=== PATIENT | female | born 1940 | race Caucasian/White ===

== ENCOUNTER 2024-04-23 02:26 | Inpatient (IN) | payer MEDICARE, MEDICAID, SELFPAY ==
[2024-04-23] VITALS (34 sets, daily range): BP systolic 53–155; BP diastolic 38–107; PULSE 60–96; RESP 10–27; TEMP 35.7–36.8; O2SAT 93–100; BMI 29.2; BMI 29.4
--- NOTE | 2024-04-23 02:44 | CTR_ITS ---
PROCEDURE INFORMATION: Exam: CT Head Without Contrast Exam date and time: 04/23/2024 4:00 AM Age: 83 years old Clinical indication: Stroke-like symptoms; Altered mental status/memory loss and drowsines/somnolence and other: Seizure activity/garbled speech/lethargy; Additional info: AMS TECHNIQUE: Imaging protocol: Computed tomography of the head without contrast. Radiation optimization: All CT scans at this facility use at least one of these dose optimization techniques: automated exposure control; mA and/or kV adjustment per patient size (includes targeted exams where dose is matched to clinical indication); or iterative reconstruction. Other technique: STROKE PROTOCOL was implemented. COMPARISON: CT head wo con* [id number] 06/08/2017 2:44 PM RADIATION DOSE METRICS: Total DLP (mGy-cm): 1071.58 FINDINGS: Brain: Age appropriate atrophy and small vessel ischemic change. There is low attenuation throughout the right occipital lobe consistent with a probably subacute infarct. Mixed increased density may be hemorrhagic conversion versus contrast staining if the patient has had recent contrast-enhanced studies. There is effacement of sulci in this region. No other significant mass effect, midline shift or uncal herniation. Midline structures are normal. No extra-axial fluid collections. Cerebral ventricles: No ventriculomegaly. Paranasal sinuses: Visualized sinuses are unremarkable. No fluid levels. Mastoid air cells: Visualized mastoid air cells are well aerated. Orbital cavities: The patient has had bilateral lens replacement surgery. Bones: Unremarkable. No acute fracture. Soft tissues: Unremarkable. Vasculature: Carotid atherosclerotic calcification. CT/CT head wo con* [id number] IMPRESSION: Probable subacute to early chronic infarct throughout the right occipital lobe with increased density suggesting hemorrhagic transformation versus contrast staining if the patient has had a recent contrast-enhanced exam. ASSESSMENT: ASPECTS ([place] Stroke Program Early CT Score) is 10.
--- NOTE | 2024-04-23 02:44 | CTR_ITS ---
PROCEDURE INFORMATION: Exam: CT Abdomen And Pelvis Without Contrast Exam date and time: 04/23/2024 4:03 AM Age: 83 years old Clinical indication: Abdominal pain; Left lower quadrant (llq); Patient HX: Lower abd pain tenderness upon palpation. Bradycardic and hypotensive on monitor. Patient very lethargic. ; Additional info: Abd pain, AMS TECHNIQUE: Imaging protocol: Computed tomography of the abdomen and pelvis without contrast. Radiation optimization: All CT scans at this facility use at least one of these dose optimization techniques: automated exposure control; mA and/or kV adjustment per patient size (includes targeted exams where dose is matched to clinical indication); or iterative reconstruction. COMPARISON: CR (CHEST, ) 04/23/2024 2:46 AM RADIATION DOSE METRICS: Total DLP (mGy-cm): 2863.78 FINDINGS: Heart: The heart is at the upper limit normal with coronary artery and valvular calcifications. Diaphragm: There is a small hiatal hernia. Liver: Normal. No mass. Gallbladder and biliary ducts: The patient has had a cholecystectomy. Pancreas: Normal. No ductal dilation. Spleen: There are scattered granulomas throughout the spleen. Adrenal glands: Normal. No mass. Kidneys and ureters: There is a 2.8 cm cyst in the left kidney. The right kidney is normal. No stones or obstructive uropathy. Stomach and bowel: Unremarkable. No obstruction. No mucosal thickening. Appendix: No evidence of appendicitis. Intraperitoneal space: Unremarkable. No free air. No significant fluid collection. Vasculature: There is severe aortoiliac atherosclerosis. Lymph nodes: Unremarkable. No enlarged lymph nodes. Urinary bladder: Unremarkable as visualized. Reproductive: The patient has had a hysterectomy. There is an 11.4 mm calcified cyst or dermoid in the left ovary. Bones/joints: There are old fractures of the superior and inferior pubic rami bilaterally. There are marked degenerative changes present. Normal alignment. No acute fractures. Soft tissues: Unremarkable. CT/CT abdomen pelvis wo con [id number] IMPRESSION: Small hiatal hernia. Borderline cardiomegaly. Left ovarian dermoid or calcified cyst. Left renal cyst. Other surgical changes as described above. Correlate with the patient's clinical history. COMMENTS: Consistent with the [employer]'s Incidental Findings Committee white paper (J Am Hannah Radiol 2018): Any incidental renal lesion less than 1 cm or classified as too small to characterize, or any incidental cystic renal lesion characterized as simple-appearing, is likely benign. No follow-up imaging is recommended for these lesions per consensus recommendations based on imaging criteria.
--- NOTE | 2024-04-23 02:44 | XRR_ITS ---
PROCEDURE INFORMATION: Exam: XR Chest Exam date and time: 04/23/2024 2:46 AM Age: 83 years old Clinical indication: Other: AMS; Patient HX: EMS arrrival from [facility] for possible seizure activity. [facility] reported patient to have slight left facial droop with garbled speech. Upon er exam. Patient very lethargic but able to follow basic commands. Bradycardic and hypotensive on monitor. TECHNIQUE: Imaging protocol: Radiologic exam of the chest. Views: 1 view. COMPARISON: CT angio chest PE [facility] [id number] 06/13/2017 3:05 PM FINDINGS: Lungs: Low lung volumes with atelectasis at the lung bases. More dense consolidation at the medial left lung base may be pneumonia. Pleural spaces: Unremarkable. No pleural effusion. No pneumothorax. Heart/Mediastinum: Unremarkable. No cardiomegaly. Bones/joints: Unremarkable. XR/XR chest 1V portable [id number] IMPRESSION: Possible left lung base pneumonia.
--- NOTE | 2024-04-23 02:45 | ECG_ITS ---
[facility] Date: 2024-[facility]23 Pat Name: Pranav Mayen Department: Room: Gender: Female Rug Hooker: : 1940 Requested By: Carson Granados Order Number: [id number] Ash MD: Regina Sanchez M.D. Measurements Intervals [place] Rate: 68 P: 59 [place]: 158 QRS: 43 QRSD: 100 T: 103 QT: 478 QTc: 512 Interpretive Statements SINUS RHYTHM POSSIBLE LATERAL MYOCARDIAL INFARCTION , OF INDETERMINATE AGE [30 ms Q WAVE IN I/aVL/V5/V6] MODERATE T-WAVE ABNORMALITY, CONSIDER ANTERIOR ISCHEMIA [-0.1+ mV T-WAVE IN V3/V4] Compared to ECG 06/13/2017 12:27:48 Myocardial infarct finding now present T-wave abnormality now present Possible ischemia now present Electronically Signed On 04-26-2024 21:21:20 DIAGNOSTIC SALES SPECIALIST by Regina Sanchez M.D. [email or web address]
[2024-04-23] MEDS: piperacillin-tazobactam 4.5 GM in sodium chloride 0.9% (plus) 50 ML IV (02:51)
[2024-04-23] MEDS: sodium chloride 0.9% 2,177.25 ML 2177.25 ML IV (02:51)
[2024-04-23 02:58] LABS: Basophils # 0.1 10^3/uL (0.0-0.1); Basophils % 0.6 %; Eosinophils # 0.2 10^3/uL (0.0-0.8); Eosinophils % 2.7 %; Hematocrit 33.8 % (36-47); Lymphocytes % 38.5 %; Mean Corpuscular HGB Conc 35.5 g/dL (30-55); Mean Corpuscular Hemoglobin 32.6 pg (27-33); Mean Corpuscular Volume 91.8 fl (85-98); Monocytes # 0.5 10^3/uL (0.2-0.9); Monocytes % 6.3 %; Neutrophils # 3.99 10^3/uL (1.8-7.7); Neutrophils % 51.5 %; Nucleated Red Blood Cells % 0 %; Platelet Count 147 10^3/cmm (157-399); Red Blood Count 3.68 10^6/uL (3.85-5.65); Red Cell Distribution Width 13.4 % (12.1-15.1); White Blood Count 7.75 10^3/uL (3.29-11.43)
[2024-04-23 03:02] LABS: INR 1.08 (0.8-1.2)
[2024-04-23 03:03] LABS: Partial Thromboplastin Time 28.3 SECONDS (23.9-36.7)
--- NOTE | 2024-04-23 03:16 | ED_ITS ---
HPI - Back Pain/Injury 2 General: Chief Complaint: Back Pain/Injury Stated Complaint: neck pain Time Seen by Provider: 04/23/24 02:32 History of Present Illness: 83-year-old female from a long-term [facility]. She evidently has a history of Lewy body dementia. She presents with what sounds like a near syncopal episode versus short-lived seizure. She had evidently gotten up to use the restroom, began to feel faint, and to shake. She was lowered slowly against the wall to the floor. She evidently remained awake. The sudden change was concerning to long-term staff, so EMS was called. EMS found the patient awake, and talking, but hypotensive. She presents here awake and talking, somewhat lethargic, and hypotensive with systolic blood pressure of 75 initially. Related Data Allergies Allergy/AdvReac Type Severity Reaction Status Date / Time Iodinated Contrast Media Allergy Unknown Verified 04/23/24 02:56 levofloxacin [From Levaquin] Allergy Unknown Verified 04/23/24 02:56 mirtazapine [From Remeron] Allergy Unknown Verified 04/23/24 02:56 penicillin G Allergy Unknown Verified 04/23/24 02:56 Sulfa (Sulfonamide Allergy Unknown Verified 04/23/24 02:56 Antibiotics) Physical Exam 2 Const: EXAM LIMITATIONS: altered mental status GENERAL APPEARANCE: c ooperative, lethargic, ill appearing and frail appearing O RIENTATION/CONSCIOUSNESS: Yes awake, Yes oriented to person and Yes lethargic; not oriented to place and not oriented to time HENMT: COMMON NORMALS: normocephalic and atraumatic HEAD & SCALP: n ormocephalic and atraumatic FACE & SINUS: normal facial exam and face symmetric Eye: COMMON NORMALS: Equal, round and reactive pupils present and EOMs intact bilaterally PUPIL: Yes Equal, round and reactive pupils present Chest: CHEST: Yes Symmetrical chest wall rise Resp: COMMON NORMALS: clear to auscultation bilaterally EFFORT & INSPECTION: Yes symmetric chest movement and No tachypneic AUSCULTATION: c lear to auscultation bilaterally Cardio: COMMON NORMALS: regular rate and regular rhythm RATE: regular rate RHYTHM: regular rhythm GI: COMMON NORMALS: Normal to inspection, nondistended, normoactive bowel sounds present and Soft to palpation PALPATION: Yes Soft to palpation and Yes Tenderness to palpation present (GI) (Diffuse) Neuro: SENSORIUM/ORIENTATION: Yes oriented to person, No oriented to place, No oriented to time and Yes lethargic OTHER: Moves all extremities equally. No definite visual field defect on exam. No facial droop. Sensation is intact upper and lower extremities Course 2 Vital Signs: Vital signs: Vital Signs Temperature 97.5 F L 04/23/24 02:34 Pulse Rate 67 04/23/24 04:00 Respiratory Rate 117 H 04/23/24 04:00 Blood Pressure 53/38 04/23/24 04:00 Pulse Oximetry 94 04/23/24 03:30 MDM - Back Pain/Injury Medical Decision Making This patient presents after what sounds like a near syncopal episode, with low systolic blood pressures, and heart rates in the 60s. She can answer simple questions. She says she is not hurting currently. She denies trouble breathing. Saturations have been in the low 90s on room air. Blood pressure is improved after fluid bolus has been started. After chest x-ray, which is not terribly remarkable, she was taken directly to CAT scan. Spoke with radiology about CAT scan results. Appears to be a subacute infarct in the right occipital lobe with some hemorrhagic conversion. Initially, assumed we were going to have to transfer this patient, as we do not have neurosurgery available at this facility. I spoke with neurology at [facility] in [place]. Their recommendations were to repeat noncontrast CT in 6 hours to look for progression, as this is a grade 2 hemorrhagic transformation, that is very likely not to progress significantly. At that point, would be treated as a subacute ischemic stroke. I spoke with our neurologist here, Dr. Salazar, and he agrees. Recommendations are to support blood pressure, as the patient has been hypotensive despite fluid bolus. Repeat CT scan later today. Hold off on antiplatelet therapy for now due to hemorrhagic conversion, and further recommendations to follow. No CTA at this point, due to high creatinine, and history of anaphylactic reaction to CT contrast evidently. I spoke to family, they are in agreement that they can stay here. This patient has a hemoglobin of 12. White count of 7.8. Bicarbonate of 17 and creatinine of 6.6 with BUN of 100. She is clinically very dry. Despite the 30 mL/kg bolus she received, she will get another liter of fluid. We are starting pressors currently to support blood pressure and keep the MAP above 65. Hopefully with hydration she can come off the pressors quickly. Hospitalist will see the patient while in the ER. She will go to the ICU. Currently blood pressure is 89/62 with a MAP of 76. Labs 04/23/24 02:06 04/23/24 02:06 Radiology Impressions Abdomen/Pelvis CT 04/23/24 02:44 IMPRESSION: Small hiatal hernia. Borderline cardiomegaly. Left ovarian dermoid or calcified cyst. Left renal cyst. Other surgical changes as described above. Correlate with the patient's clinical history. COMMENTS: Consistent with the [place] [employer]'s Incidental Findings Committee white paper (J Am Hannah Radiol 2018): Any incidental renal lesion less than 1 cm or classified as too small to characterize, or any incidental cystic renal lesion characterized as simple-appearing, is likely benign. No follow-up imaging is recommended for these lesions per consensus recommendations based on imaging criteria. Chest X-Ray 04/23/24 02:44 IMPRESSION: Possible left lung base pneumonia. Head CT 04/23/24 02:44 IMPRESSION: Probable subacute to early chronic infarct throughout the right occipital lobe with increased density suggesting hemorrhagic transformation versus contrast staining if the patient has had a recent contrast-enhanced exam. ASSESSMENT: ASPECTS ([place] Stroke Program Early CT Score) is 10. ADDENDUM: 04/23/24 0333 THIS REPORT CONTAINS FINDINGS THAT MAY BE CRITICAL TO PATIENT CARE. The findings were verbally communicated via telephone conference at 3:32 AM INFRASTRUCTURE DIRECTOR on 04/23/2024 with MORTEZA OLEARY. The findings were acknowledged and understood. Laboratory Results WBC 7.75 10^3/uL (3.29-11.43) 04/23/24 02:06 RBC 3.68 10^6/uL (3.85-5.65) L 04/23/24 02:06 Hgb 12.00 g/dL (11.27-16.99) 04/23/24 02:06 Hct 33.8 % (36-47) L 04/23/24 02:06 MCV 91.8 fl (85-98) 04/23/24 02:06 MCH 32.6 pg (27-33) 04/23/24 02:06 MCHC 35.5 g/dL (30-55) 04/23/24 02:06 RDW 13.4 % (12.1-15.1) 04/23/24 02:06 Plt Count 147 10^3/cmm (157-399) L 04/23/24 02:06 MPV 11.0 fL (7.4-10.4) H 04/23/24 02:06 Neut % (Auto) 51.5 % 04/23/24 02:06 Lymph % (Auto) 38.5 % 04/23/24 02:06 [place] % (Auto) 6.3 % 04/23/24 02:06 Eos % (Auto) 2.7 % 04/23/24 02:06 Baso % (Auto) 0.6 % 04/23/24 02:06 Neut # (Auto) 3.99 10^3/uL (1.8-7.7) 04/23/24 02:06 Lymph # (Auto) 3.0 10^3/uL (0.8-4.8) 04/23/24 02:06 [place] # (Auto) 0.5 10^3/uL (0.2-0.9) 04/23/24 02:06 Eos # (Auto) 0.2 10^3/uL (0.0-0.8) 04/23/24 02:06 Baso # (Auto) 0.1 10^3/uL (0.0-0.1) 04/23/24 02:06 Nucleated RBC % (auto) 0 % 04/23/24 02:06 Nucleated RBCs # 0.0 /100WBC 04/23/24 02:06 PT 14.40 SECONDS (12.1-14.9) 04/23/24 02:06 INR 1.08 (0.8-1.2) 04/23/24 02:06 APTT 28.3 SECONDS (23.9-36.7) 04/23/24 02:06 Specimen Type Arterial 04/23/24 03:10 Sample Site Radial, left 04/23/24 03:10 ABG pH 7.34 (7.35-7.45) L 04/23/24 03:10 ABG pCO2 26.1 mmHg (35-45) L 04/23/24 03:10 ABG pO2 92.9 mmHg (80.0-100.0) 04/23/24 03:10 ABG HCO3 14.1 mmol/L (22-26) L 04/23/24 03:10 ABG Base Excess -10.3 mmol/L (-2.0-2.0) L 04/23/24 03:10 Que Test Pos 04/23/24 03:10 Hematocrit 32.9 % (37-47) L 04/23/24 03:10 Hgb O2 Saturation 96.1 % (95-100) 04/23/24 03:10 Carboxyhemoglobin 1.0 %THgb (0.4-20.1) 04/23/24 03:10 Methemoglobin 0.3 % (0.4-1.5) L 04/23/24 03:10 Total Hemoglobin 10.7 g/dL (12-16) L 04/23/24 03:10 O2 Delivery Device Room air 04/23/24 03:10 Computer Forensics Analyst ID [email or web address] 04/23/24 03:10 Sodium 131 mmol/L (136-145) L 04/23/24 02:06 Potassium 4.3 mmol/L (3.5-5.1) 04/23/24 02:06 Chloride 93 mmol/L (98-107) L 04/23/24 02:06 Carbon Dioxide 17 mmol/L (22-29) L 04/23/24 02:06 Anion Gap 25.3 (5-19) H 04/23/24 02:06 BUN 104 mg/dL (8-23) H* 04/23/24 02:06 Creatinine 6.6 mg/dL (0.5-0.9) H* 04/23/24 02:06 GFR Calculation Not Reportable 04/23/24 02:06 Glucose 201 mg/dL (65-115) H 04/23/24 02:06 Calculated Osmolality 310 mOsm/kg (285-295) H 04/23/24 02:06 Lactic Acid 1.3 mmol/L (0.5-2.2) 04/23/24 03:20 Calcium 8.8 mg/dL (8.5-10.5) 04/23/24 02:06 Magnesium 2.0 mg/dL (1.7-2.3) 04/23/24 02:06 Total Bilirubin 0.5 mg/dL (0.15-1.2) 04/23/24 02:06 AST 33 U/L (0-32) H 04/23/24 02:06 ALT 26 U/L (0-33) 04/23/24 02:06 Alkaline Phosphatase 110 U/L (35-105) H 04/23/24 02:06 Creatine Kinase 137 U/L (26-192) 04/23/24 02:06 Troponin T Baseline 59 ng/L (0-10) H 04/23/24 02:06 C-Reactive Protein 4.2 mg/L (0.0-4.9) 04/23/24 02:06 NT-Pro-B Natriuret Pep 459 pg/mL (0-450) H 04/23/24 02:06 Total Protein 6.3 g/dL (6.6-8.7) L 04/23/24 02:06 Albumin 3.8 g/dL (3.5-5.2) 04/23/24 02:06 Globulin 2.5 g/dL (1.3-4.6) 04/23/24 02:06 All radiology interpretation(s) finalized by discharge Critical Care Time 2 Critical Care Time: Critical Care Time: Yes Total Critical Care Time: 50 Attestation: This case had a high probability of a clinically significant, sudden, or life threatening deterioration of this patient's condition which required my full and direct attention, intervention and personal management. Time is independent of any procedures performed Discharge Plan Discharge Patient Disposition: Admitted As Inpatient Clinical Impression: Ischemic cerebrovascular accident (CVA), Acute renal failure, Metabolic acidosis Condition: Critical Referrals: Catarino Marrero DO [Primary Care Provider] - Coding Level of Care Code ED Health Services Manager for Tisha Urrutia
[2024-04-23 03:21] LABS: Troponin(5th) Baseline 59 ng/L (0-10)
[2024-04-23 03:22] LABS: ABG PCO2 26.1 mmHg (35-45); ABG PH Result 7.34 (7.35-7.45); Arterial Blood Gas Hematocrit 32.9 % (37-47); Base Excess ABG -10.3 mmol/L (-2.0-2.0); Blood Gas Allen Test Pos; Blood Gas Sample Site Radial, left; Blood Gas Sample Type Arterial; HCO3 ABG 14.1 mmol/L (22-26); HGB O2 Sat 96.1 % (95-100); Methemoglobin 0.3 % (0.4-1.5); Oxygen Device ROOM AIR; PO2 ABG 92.9 mmHg (80.0-100.0); Total Hemoglobin 10.7 g/dL (12-16)
[2024-04-23 03:30] LABS: Alanine Aminotransferase 26 U/L (0-33); Albumin Level 3.8 g/dL (3.5-5.2); Alkaline Phosphatase 110 U/L (35-105); Anion Gap 25.3 (5-19); Aspartate Amino Transferase 33 U/L (0-32); C Reactive Protein 4.2 mg/L (0.0-4.9); Calcium 8.8 mg/dL (8.5-10.5); Carbon Dioxide 17 mmol/L (22-29); Chloride 93 mmol/L (98-107); Creatine Phosphokinase 137 U/L (26-192); Creatinine Clr Calc Pharmacy 5.9189; Globulin 2.5 g/dL (1.3-4.6); Glucose 201 mg/dL (65-115); NT Pro B Type Natriuretic Pept 459 pg/mL (0-450); Osmolality Calculated 310 mOsm/kg (285-295); Potassium 4.3 mmol/L (3.5-5.1); Sodium 131 mmol/L (136-145); Total Bilirubin 0.5 mg/dL (0.15-1.2); Total Protein 6.3 g/dL (6.6-8.7)
[2024-04-23 03:43] LABS: Lactic Sepsis W/Reflex 1.3 mmol/L (0.5-2.2)
[2024-04-23 03:45] LABS: Blood Urea Nitrogen 104 mg/dL (8-23)
[2024-04-23] MEDS: norepinephrine 4 MG/250 ML BAG 5 MG IV (04:16)
[2024-04-23] MEDS: sodium chloride 0.9% 1,000 ML 999 ML IV (04:20)
[2024-04-23 04:43] LABS: Troponin 5 2HR 44.88 ng/L (0-10)
--- NOTE | 2024-04-23 04:45 | ECG_ITS ---
[facility] Test Date: 2024-04-23 Pat Name: Pranav Mayen Department: Room: Gender: Female Promos Executive Producer: : 1940 Requested By: Carson Granados Order Number: [id number] Reading MD: LEWIS OLSON Measurements Intervals [place] Rate: 72 P: 38 ME: 164 QRS: 18 QRSD: 93 T: 93 QT: 466 QTc: 511 Interpretive Statements SINUS RHYTHM MODERATE T-WAVE ABNORMALITY, CONSIDER LATERAL ISCHEMIA [-0.1+ mV T-WAVE IN I/aVL/V5/V6] Compared to ECG 04/23/2024 03:39:21 Myocardial infarct finding no longer present T-wave abnormality still present Possible ischemia still present Electronically Signed On 04-27-2024 00:42:53 SHELL TRIM OPERATOR by LEWIS OLSON [id number]
[2024-04-23 04:47] LABS: Troponin 5 2HR Delta -14.12 ABS# (0-10)
[2024-04-23 05:13] LABS: Bilirubin Urine Negative (Negative); Blood Urine Non-haemolysed trace (Negative); Glucose Urine UA 2+ (Normal); Ketones Urine Negative (Negative); Leukocyte Esterase Urine 1+ (Negative); Nitrate Urine Negative (Negative); Protein Urine Trace (Negative); Specific Gravity, Urine 1.012 (1.005-1.030); Urine Appearance Cloudy (CLEAR); Urine Color Yellow (Yellow); Urobilinogen Urine 0.2 mg/dL (Negative); pH Urine 5.5 (5-7)
[2024-04-23 05:18] LABS: Add Urine Microscopic? YES; Bacteria Urine 4+ /hpf; Hyaline Casts Urine 6.61 /lpf; RBC Urine 0-2 /hpf (0-2); Squamous Epithelial Cell Urine 0-5 /hpf (0-5); WBC Urine 21-50 /hpf (0-5)
[2024-04-23 05:21] LABS: Add Urine Culture? Yes
[2024-04-23] MEDS: lactated ringers 1,000 ML 500 ML IV (06:04)
[2024-04-23] MEDS: D5-NS 0.45% + KCL 20 mEq 20 MEQ/1,000 ML BAG 75 MEQ IV (06:05)
[2024-04-23 06:34] LABS: Glucose Point of Care 206 mg/dL (70-110)
--- NOTE | 2024-04-23 06:37 | PM.HP ---
Providers/Chief Complaint Admitting Physician: Angelo Casillas MD Primary Care Provider: Catarino Marrero DO Chief Complaint: neck pain History of Present Illness Pranav Mayen is a 83 year old female admitted through the emergency department due to stroke. She was found in the emergency department to have right occipital CVA with suggestion of early hemorrhagic transformation. Patient also noted to be hypotensive with acute renal failure probable dehydration. Patient has Lewy body dementia for 7 years and is not a good historian. I initially saw her in the emergency department and then met with sons Antonio and Alberto and their 2 wives at ICU waiting area with Yasmeen the daughter on speaker phone also giving history. 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 She developed Lewy body dementia 7 years ago. She does not have history of tobacco or alcohol use but was exposed to secondhand smoke. She has diabetes but recently diabetic medication was stopped and blood sugars were being monitored at the nursing facility. October she spent 4 days at hospital in [place] with dehydration and stomach issues. She was not able to tolerate the MRI so that was not completed. She was starting to wander a lot and deemed unsafe by patient's daughter and doctor so was placed in memory care on March 29 in a retirement. 14 days later she was transferred to [facility] assisted [facility]. Family notes that she has been staring and not talking as much for about 2 weeks. Last week she complained of headache on 04/19/2024 and ear pain prior to that she had nausea and some vomiting. She also had diarrhea like water last week and again yesterday. She has not had muscle aches or fever. She has to be prompted to eat and drink but weight has been stable. Alberto Alvarez and Yasmeen all visit her regularly along with their spouses. Patient has a lot of attention from family from what I can gather with each family member visiting at least a couple times a week for hours at a time. The patient is typically still able to walk. Antonio notes that once her blood pressure improved here she said her headache has also improved Dr. Jeffers discussed the case with Dr. Salazar local neurologist as well as stroke neurologist from [place] and plan for admission was made. Blood pressures to be held. I reviewed images and inspiratory volume is poor but heart silhouette looks mildly enlarged compared to previous portable chest x-ray. CT of the abdomen was negative but showed mild cardiomegaly no pleural effusion. CT of the head did show right occipital CVA with some volume loss but also some increase density suggesting hemorrhagic transformation. Review of Systems Narrative: Difficult to obtain from the patient Medications/Allergies Allergies Allergy/AdvReac Type Severity Reaction Status Date / Time Iodinated Contrast Media Allergy Unknown Verified 04/23/24 02:56 levofloxacin [From Levaquin] Allergy Unknown Verified 04/23/24 02:56 mirtazapine [From Remeron] Allergy Unknown Verified 04/23/24 02:56 penicillin G Allergy Unknown Verified 04/23/24 02:56 Sulfa (Sulfonamide Allergy Unknown Verified 04/23/24 02:56 Antibiotics) PFSH Acute PFSH: Medical History (Updated 04/23/24 @ 06:55 by Angelo Casillas MD) Diabetes Lewy body dementia without behavioral disturbance Vitals/I&O/Wt Last Vital Signs Temp 96.3 F L 04/23/24 05:39 Pulse 74 04/23/24 06:30 Resp 12 04/23/24 06:30 BP 136/74 04/23/24 06:30 Pulse Ox 100 04/23/24 06:30 O2 Del Method Room Air 04/23/24 06:19 O2 Flow Rate 2 04/23/24 05:39 04/22/24 04/22/24 04/23/24 14:59 22:59 06:59 Intake Total 3227.25 / 3227.25 Balance 3227.25 / 3227.25 Weight last 48 hrs Weight 73 kg Weight 73 kg Weight 72.575 kg Physical Exam Narrative: General Well-developed well-nourished overweight female in no acute cardiopulmonary distress she is pleasant but very slow to respond to commands. Neuro she is alert but flat affect. She tells me she is in [place] but did not know the date. Pupils are equally round and reactive to light accommodation she was very inconsistent on following external ocular movements but appear to be intact at least horizontally. She is able to raise each extremity off the bed but the left side is tremulous on the arm. Leg is steady. CV regular rate and rhythm Lungs clear to auscultation bilaterally Abdomen positive bowel sounds soft nontender Calves no tenderness cords pretibial edema Mood and affect flat Skin warm and dry Data 04/23/24 02:06 04/23/24 02:06 A&P Assessment and plan (1) Ischemic cerebrovascular accident (CVA): This may be due to urinary tract infection, dehydration and hypotension. Her stroke symptoms have improved somewhat with volume repletion. Her symptoms are more global and not focal neurologic deficit. Her Lewy body dementia makes assessment difficult. She is not a candidate for tPA given time of onset of symptoms was delayed in terms of days to weeks and also she has signs of hemorrhagic transformation. Antiplatelets agent currently held and time to start will be determined with the neurology consult Start PT and OT and speech therapy (2) Lewy body dementia without behavioral disturbance: Chronic but pleasant not combative beyond wandering hence now in assisted living (3) Acute renal failure: Appears to be dehydration. CT scan of the abdomen did not show obstruction or hydronephrosis repeat BMP after volume repletion (4) Metabolic acidosis: As above (5) Diabetes: Start fingerstick blood glucose before every meal and nightly with low scale sliding scale insulin (6) Urinary tract infection: Start Rocephin. Patient has reported penicillin allergy but cross-reactivity is less than 10% Attestations Medical Necessity Statement*: Patient's hospitalization will be greater than 2 midnights Coding Level of Care Code Acute Code for [facility] Diagnoses Ischemic cerebrovascular accident (CVA) I63.9 Lewy body dementia without behavioral disturbance G31.83; F02.80 Acute renal failure N17.9 Metabolic acidosis E87.20 Diabetes E11.9 Urinary tract infection N39.0 Time Spent (min) 75
[2024-04-23] MEDS: cefTRIAXone 1,000 mg SDV 1000 MG IVP (06:49)
[2024-04-23 07:30] LABS: Estmated Average Glucose 177; Hemoglobin A1C 7.8 % (4.0-6.0)
[2024-04-23 07:38] LABS: Calcium 7.4 mg/dL (8.5-10.5); Carbon Dioxide 13 mmol/L (22-29); Chloride 101 mmol/L (98-107); Cholesterol 143 mg/dL (0-200); Cortisol Random 32.27 ug/dL (2.47-19.5); Creatinine Clr Calc Pharmacy 6.6402; Glucose 182 mg/dL (65-115); HDL Cholesterol 22 mg/dL (60-100); LDL Cholesterol Calculated 76 mg/dL (50-129); LDL HDL Ratio 3.45 RATIO (0.00-3.22); Magnesium 1.7 mg/dL (1.7-2.3); Osmolality Calculated 311 mOsm/kg (285-295); Phosphorus 5.4 mg/dL (2.5-4.5); Sodium 133 mmol/L (136-145); Thyroid Stimulating Hormone 3.18 uIU/mL (0.27-4.20); Triglycerides 227 mg/dL (0-150)
[2024-04-23 08:04] LABS: Blood Urea Nitrogen 99 mg/dL (8-23)
--- NOTE | 2024-04-23 08:57 | MR_ITS ---
WS: [id number] MRI BRAIN WITHOUT CONTRAST HISTORY: HEMMORHAGIC STROKE FOLLOWUP. COMPARISON: Prior MRI 04/07/2016, CT head 04/23/2024 TECHNIQUE: Limited sequences. Diffusion and T2 imaging are adequate. Patient was unable to remain sti ll for this examination due to altered mental status. The diffusion imaging is of adequate quality. Large acute infarct in the RIGHT parietal occipital lob e. There is a small amount of hemorrhagic component at the site of the acute infarct. No additional a cute infarcts. Moderate atrophy and additional small vessel chronic disease. Extent of disease is dif ficult to determine with this amount of motion. Flow voids are very difficult to visualize. Small lucio iber distal LEFT vertebral artery similar to the study from 2016. Intracranial internal carotid arter ies are not very well visualized to the petrous portions. MR/MR head wo con* [id number] IMPRESSION: 1. Very limited exam due to patient's altered mental status and difficulty rem aining still. 2. Acute large hemorrhagic infarct involving the RIGHT occipital parietal aakash on. No additional diffusion abnormalities are identified. 3. There is moderate volume loss. The extent of additional small vessel diseas e is difficult to determine. Arterial flow voids are also poorly visualized.
[2024-04-23 09:05] LABS: Glucose Point of Care 235 mg/dL (70-110)
[2024-04-23 09:24] LABS: Troponin 5 6HR 45.42 ng/L (0-10)
--- NOTE | 2024-04-23 09:25 | ECG_ITS ---
[employer] Test Date: 2024-04-23 Pat Name: Pranav Mayen Department: Room: [facility] Gender: Female Optometric Technician: : 1940 Requested By: Carson Granados Order Number: [id number] Reading MD: LEWIS OLSON Measurements Intervals Lilly Rate: 67 P: 45 TX: 161 QRS: 13 QRSD: 89 T: 113 QT: 439 QTc: 467 Interpretive Statements SINUS RHYTHM MODERATE T-WAVE ABNORMALITY, CONSIDER LATERAL ISCHEMIA [-0.1+ mV T-WAVE IN I/aVL/V5/V6] Compared to ECG 04/23/2024 04:39:03 No significant changes Electronically Signed On 04-27-2024 00:42:48 [employer]PERVIS[employer] by LEWIS OLSON [id number]
[2024-04-23 09:26] LABS: Troponin 5 6HR Delta -13.58 ng/L (0-12)
--- NOTE | 2024-04-23 10:20 | PM.CONSULT ---
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 According to the patient's family the patient has been at the care facility for approximately 1 month. Prior to this the patient was reported to be living with a family member but the patient was reported to wander outside of the home and therefore the patient was placed in the care facility for the patient's safety. On 04/23/2024 around 2 AM, the patient was reported to be assisting by the nursing care staff and while ambulating the patient was reported to experience near syncope. The patient was eased to the floor without reported head trauma. Systolic blood pressure was reported to be low and the patient was brought to [facility] emergency department. In the emergency room, the ER physician stated that the patient was hypotensive. Examination was reported to be nonfocal but noncontrast head CT was obtained and reported to reveal subacute to early chronic right occipital lobe infarction with hemorrhagic transformation. The ER physician stated that he contacted another hospital facility to transfer the patient but the facility did not accept the patient in transfer since only conservative treatment was recommended by the physician the ER physician spoke to at the other facility. I was contacted around 4 AM on 04/23/2024 regarding the patient's history. In the ICU bed #4 the patient is alert. Family members were at the bedside and 1 family member was on the phone with one of the family members that were at the patient's bedside at [facility] intensive care unit bed #4. According to the family members, patient had no previous history of strokes, or heart disease. Drug allergies: Iodinated contrast medium type reaction unknown Levaquin type reaction unknown Remeron type reaction unknown Penicillin G type reaction unknown Sulfonamide antibiotics type reaction unknown Current medications: Aricept 5 mg p.o. daily Seroquel 100 mg p.o. nightly Effexor 75 mg p.o. daily Zanaflex 2 mg p.o. daily Synthroid 75 mcg p.o. daily Lisinopril 10 mg p.o. daily Metoprolol 100 mg p.o. daily Zanaflex 2 mg p.o. daily Zofran 4 mg p.o. daily Protonic 40 mg p.o. daily Lorazepam 0.5 mg p.o. daily Hydrocodone 1 p.o. 3 times daily Melatonin 1 mg p.o. daily Albuterol sulfate 1 mg every 4 hours continuous nebulization Allopurinol 300 mg p.o. daily Aspirin 81 mg p.o. daily Dulcolax 10 mg as needed B12 500 mcg p.o. 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 gouty arthritis Acute renal failure with elevated creatinine Metabolic acidosis Type 2 diabetes mellitus Lewy body dementia with behavior disturbance Hypotension Habits: None Family history: Negative for strokes or aneurysms or seizures or dementia Social history: Patient resides in a care facility for the past month Review of Systems General: Reports: 10 or more systems reviewed and unremarkable except in HPI and below Eyes: Reports: change in vision Neuro: Reports: confusion and other (Right occipital stroke with hemorrhagic transformation) Psych: Reports: memory loss Medications/Allergies Home Medications Medication Instructions Recorded Confirmed Last Taken Type albuterol sulfate 0.63 mg/3 mL 1 mg continuous nebulization Q4H 04/23/24 04/23/24 Unknown History solution for nebulization allopurinol 300 mg tablet 300 mg PO DAILY 04/23/24 04/23/24 Unknown History aspirin 81 mg tablet,delayed 81 mg PO DAILY 04/23/24 04/23/24 Unknown History release bisacodyl 10 mg rectal suppository 10 mg SD DAILY 04/23/24 04/23/24 Unknown History (Dulcolax (bisacodyl)) cyanocobalamin (vitamin B-12) 500 500 mcg PO DAILY 04/23/24 04/23/24 Unknown History mcg tablet (Vitamin B-12) donepezil 5 mg tablet 5 mg PO DAILY 04/23/24 04/23/24 Unknown History hydrocodone 5 mg-acetaminophen 325 1 tab PO TID 04/23/24 04/23/24 Unknown History mg tablet levothyroxine 75 mcg tablet 75 mcg PO DAILY 04/23/24 04/23/24 Unknown History lisinopril 10 mg tablet 10 mg PO DAILY 04/23/24 04/23/24 Unknown History lorazepam 0.5 mg tablet 0.5 mg PO DAILY 04/23/24 04/23/24 Unknown History magnesium hydroxide 400 mg/5 mL 15 ml PO DAILY PRN Constipation 04/23/24 04/23/24 Unknown History oral suspension (Milk of Magnesia) melatonin 1 mg tablet 1 mg PO DAILY 04/23/24 04/23/24 Unknown History metoprolol tartrate 100 mg tablet 100 mg PO DAILY 04/23/24 04/23/24 Unknown History ondansetron HCl 4 mg tablet 4 mg PO DAILY 04/23/24 04/23/24 Unknown History pantoprazole 40 mg tablet,delayed 40 mg PO DAILY 04/23/24 04/23/24 Unknown History release quetiapine 100 mg tablet 100 mg PO QPM 04/23/24 04/23/24 Unknown History sennosides 8.6 mg capsule (senna) 8.6 mg PO DAILY 04/23/24 04/23/24 Unknown History tizanidine 2 mg tablet 2 mg PO DAILY 04/23/24 04/23/24 Unknown History triamterene 37.5 1 tab PO DAILY 04/23/24 04/23/24 Unknown History mg-hydrochlorothiazide 25 mg tablet venlafaxine 75 mg tablet 75 mg PO DAILY 04/23/24 04/23/24 Unknown History Allergies Allergy/AdvReac Type Severity Reaction Status Date / Time Iodinated Contrast Media Allergy Unknown Verified 04/23/24 02:56 levofloxacin [From Levaquin] Allergy Unknown Verified 04/23/24 02:56 mirtazapine [From Remeron] Allergy Unknown Verified 04/23/24 02:56 penicillin G Allergy Unknown Verified 04/23/24 02:56 Sulfa (Sulfonamide Allergy Unknown Verified 04/23/24 02:56 Antibiotics) Current Medications Generic Name Dose Route Start Last Admin Trade Name Freq PRN Reason Stop Dose Admin Ceftriaxone Sodium 1,000 mg 04/23/24 06:45 04/23/24 06:49 Ceftriaxone 1,000 Mg Sdv IVP 1,000 mg Q24H BRITTANY Administration Protocol Norepinephrine Bitartrate 4 mg in 250 mls @ 0 mls/hr 04/23/24 04:15 04/23/24 06:56 Levophed IV 4 mcg/min .Q0M BRITTANY 15 mls/hr Titration Protocol Per Protocol Potassium Chloride/Dextrose/Sod Cl 20 meq in 1,000 mls @ 75 mls/hr 04/23/24 05:57 04/23/24 06:05 D5-Ns 0.45% + Kcl 20 Meq IV 75 mls/hr .[id number] BRITTANY Administration PFSH Acute PFSH: Medical History (Updated 04/23/24 @ 06:55 by Angelo Casillas MD) Diabetes Lewy body dementia without behavioral disturbance Vitals/I&O/Wt Last Vital Signs Temp 96.3 F L 04/23/24 05:39 Pulse 67 04/23/24 10:00 Resp 12 04/23/24 06:30 BP 136/74 04/23/24 06:30 Pulse Ox 98 04/23/24 10:00 O2 Del Method Nasal Cannula 04/23/24 10:00 O2 Flow Rate 2 04/23/24 10:00 04/22/24 04/23/24 04/23/24 22:59 06:59 14:59 Intake Total 3240.583 / 3240.583 1000 / 1000 Output Total 725 / 725 Balance 3240.583 / 3240.583 275 / 275 Weight last 48 hrs Weight 160 lb 14.999 oz Weight 160 lb 14.999 oz Weight 160 lb Physical Exam Narrative: NIH score = 3 (secondary to patient being sleepy but arousable = 1, questionable visual field deficit =2) The patient was sleepy but arousable with tactile stimulation. Patient answers questions correctly and follow commands. Head atraumatic. Neck supple. Cranial nerves II through XII revealed questionable left homonymous hemianopsia. Patient was able to count fingers. Other cranial nerves appear to be intact. There was no obvious facial weakness or tongue weakness. Motor testing 5/5 bilaterally. Deep tendon reflex revealed plantar responses bilaterally. There was no clonus. Sensory examination was intact to touch. Throat clear. Lungs revealed no obvious wheezing. Heart regular rhythm and rate. Extremities were negative for cyanosis. Data 04/23/24 02:06 04/23/24 04:15 A&P Assessment and plan (1) Ischemic cerebrovascular accident (CVA): Impression: 1. 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 Hypotension with near syncope 3. History of Lewy body dementia addressed by another physician 4. Acute renal failure with elevated creatinine 5. Allergic reaction to iodine contrast media Plan: 1. Noncontrast head MRI to better assess the reported right occipital infarction with hemorrhagic transformation 2. Carotid duplex study to assess for carotid or vertebral artery stenosis 3. 2D echocardiogram to assess for embolic source for stroke 4. Recommend cardiac evaluation to assess for cardiac arrhythmias as well as cardiac embolic source for stroke 5. Recommend occupational therapy, physical therapy and speech therapy consults 6. Fall precautions 7. Neurochecks and vital signs per NIH stroke protocol 8. Recommend starting lipid-lowering agent per NIH stroke protocol if no contraindications 9. Recommend holding antiplatelet medications until further evaluation of right occipital stroke with hemorrhagic transformation has been evaluated 10. Keep head of bed elevated to 30 degrees as tolerated to minimize cerebral brain swelling/edema Consult Attestations Medical Necessity Statement: The patient was evaluated by neurology for right occipital lobe infarction with hemorrhagic transformation reported to be subacute versus early chronic Coding Level of Care Code 61119 Diagnoses Ischemic cerebrovascular accident (CVA) I63.9
[2024-04-23] MEDS: LORazepam 2 mg/mL INJ 1 mL 0.25 MG IVP (11:32)
[2024-04-23] MEDS: famotidine 20 mg/2 mL INJ IVP (11:58)
[2024-04-23] MEDS: AZITHROMYCIN ADD-Vantage 500 MG in 0.9% NaCl ADD-Vantage 250 ML 250 MG IV (12:56)
--- NOTE | 2024-04-23 13:06 | PC.NURSE ---
Late note..... upon arrival, patient was receiving a 1000mL fluid bolus with another one still ordered. Patient has already received 3L of fluid in the ER. BUN is 104, Creatinine is 6.6. Blood pressure is 152/105. Nurse performed [facility] noninvasive fluid challenge and it shows SVI of 16.5%, fluid responsive. Nurse alerted Dr swain to [place] results and current BP. received orders to cancel the second fluid bolus which has not been started yet.
[2024-04-23 16:40] LABS: Glucose Point of Care 138 mg/dL (70-110)
--- NOTE | 2024-04-23 18:01 | P.PN_ITS ---
Subjective 2 Subjective: Opens her eyes to loud voice respond to some questions. Denies pain. Does not follow commands well. Falls asleep easily. Vitals/I&O/Wt Last Vital Signs Temp 96.3 F L 04/23/24 05:39 Pulse 66 04/23/24 14:00 Resp 12 04/23/24 06:30 BP 136/74 04/23/24 06:30 Pulse Ox 98 04/23/24 10:00 O2 Del Method Nasal Cannula 04/23/24 10:00 O2 Flow Rate 2 04/23/24 10:00 04/23/24 04/23/24 04/23/24 06:59 14:59 22:59 Intake Total 3240.583 / 3240.583 1519.75 / 1519.75 Output Total 1275 / 1275 550 / 1825 Balance 3240.583 / 3240.583 244.75 / 244.75 -550 / -305.25 Weight last 48 hrs Weight 73 kg Weight 73 kg Weight 72.575 kg Physical Exam 2 Const: COMMON NORMALS: patient oriented x3 and alert GENERAL APPEARANCE: c ooperative ORIENTATION/CONSCIOUSNESS: Yes awake HENMT: COMMON NORMALS: oropharynx normal Neck/C-Spine: COMMON NORMALS: no JVD Resp: COMMON NORMALS: normal respiratory effort and clear to auscultation bilaterally AUSCULTATION: clear to auscultation bilaterally Cardio: COMMON NORMALS: no JVD, regular rhythm, S1 normal heart sound present, S2 normal heart sound present and No murmurs present (Cardio) RHYTHM: regular rhythm HEART SOUNDS: S1 normal heart sound present and S2 normal heart sound present GI: COMMON NORMALS: Normal to inspection, nondistended, normoactive bowel sounds present, Soft to palpation and non-tender PALPATION: Yes Soft to palpation Extremity: COMMON NORMALS: no joint enlargement and no pedal edema Neuro: COMMON NORMALS: patient oriented x3 and moves all extremities S ENSORIUM/ORIENTATION: Yes alert Skin: COMMON NORMALS: no rashes or lesions noted GENERAL SKIN EXAM: no rashes or lesions noted OTHER: I could not get her to stay alert long enough to perform neurological examination. She does appear to track horizontallyOn the right, but could not assess the left side. She does have moderate drift in the left upper extremity, no drift on the right. Appears may have right side sensory neglect on double simultaneous stimulation. Could not assess detailed sensory exam or lower extremities. Could not assess FNF. Data 04/23/24 02:06 04/23/24 04:15 A&P Assessment and plan (1) Ischemic cerebrovascular accident (CVA): Reviewed vitals, CBC, INR, ABG, CMP, magnesium, troponin, cortisol, UA, chest x- ray, head CT, then once available head MRI. Discussed initially with her family, then additional discussion after MRI results with neurology and patient's family. Reported finding of large acute hemorrhagic stroke in the right occipital and parietal regions on MRI. As per discussion with neurology discussed with family and they wanted to try to pursue an assessment at higher level care facility with neurosurgery, question of possibly needing IR in case of aneurysmal bleed. Discussed with [facility], MRI images forwarded, reviewed by Dr. Ruiz, discussed findings. With some reassuring findings noted with petechial hemorrhages, small amount of surrounding blood, not found to have a large hemorrhage, currently reporting no indication for transfer, no indication for craniectomy, low suspicion for any aneurysmal bleed. Low suspicion for platelet dysfunction secondary to uremia. Significant room for expansion with cerebral atrophy. Hold off aspirin. Discussed further with our neurologist. Keep holding aspirin, reassess CT in 48 hours. Discussed with patient's family. Continue care here. Monitor for risk of complication as per discussion included prescription seizure, risk of cerebral edema. Risk of further bleeding, other complications. As per discussion hold venlafaxine. Monitor on telemetry for any arrhythmia. Echocardiogram has been obtained. Follow-up. Treat UTI. (2) Lewy body dementia without behavioral disturbance: Chronic but pleasant not combative beyond wandering hence now in assisted living (3) Acute renal failure: Appears to be dehydration. CT scan of the abdomen did not show obstruction or hydronephrosis repeat BMP after volume repletion (4) Metabolic acidosis: As above (5) Diabetes: Start fingerstick blood glucose before every meal and nightly with low scale sliding scale insulin (6) Urinary tract infection: Start Rocephin. Patient has reported penicillin allergy but cross-reactivity is less than 10% Plan Possible pneumonia on review of chest x-ray discussed with family. She does have some chronic cough. Continue ceftriaxone, add azithromycin for now. Attestations 2 Medical Necessity Statement*: Continue admission for assessment management of ischemic stroke, cerebral hemorrhage, UTI, pneumonia. Coding Level of Care Code Critical Care >/= 30 minutes Critical care time (in minutes): 65 The high probability of a clinically significant, sudden or life threatening deterioration, as referenced in this documentation, required my full and direct attention, intervention and personal management. The critical care time shown is in addition to time spent performing any reported separately billable procedures and includes the following: [x] Data and vital sign review and interpretation [x ] Patient assessment, examination and intervention [x] Medication orders and management [x] Patient/Family updates as able [x] Care Coordination and Documentation. Diagnoses Ischemic cerebrovascular accident (CVA) I63.9 Lewy body dementia without behavioral disturbance G31.83; F02.80 Acute renal failure N17.9 Metabolic acidosis E87.20 Diabetes E11.9 Urinary tract infection N39.0
--- NOTE | 2024-04-23 19:24 | PC.NURSE ---
SHift SUmmary: uneventful shift. Patient has rested in bed throughout the day. Head MRI shows conitnued bleed which is being watched by physician and neurology. Oriented to name, , and occaisonally location. Patient has slept most of the day. Near end of shift she attempted to get out of bed unassisted and was not oriented. Nurse assisted patient back to bed, set bed alarm.
[2024-04-23] MEDS: ziprasidone 20 mg/mL SDV 10 MG IM (20:12)
--- NOTE | 2024-04-23 20:15 | PC.NURSE ---
Confusion Patient able to state name but not birthday, place, or time. Patient attempting to climb out of bed, pulling at galvan catheter, and removing vital sign cords despite safety instructions. Dr. Rucker contacted, order placed by physician for [facility]
[2024-04-23 20:43] LABS: Glucose Point of Care 135 mg/dL (70-110)
--- NOTE | 2024-04-23 23:12 | PC.NURSE ---
Agitation Patient continuously attempting to climb out of bed, pull at galvan catheter, and remove telemetry wires. Reorientation and redirection provided with no success. Dr. Rucker contacted and order received for 2 mg ativan IVP once.
[2024-04-23] MEDS: LORazepam 2 mg/mL INJ 1 mL IVP (23:36)
[2024-04-24] VITALS (49 sets, daily range): BP systolic 99–159; BP diastolic 37–118; PULSE 70–160; RESP 14–33; TEMP 36.2–37.3; O2SAT 88–100; BMI 28.8
[2024-04-24 04:06] LABS: Basophils % 0.7 %; Eosinophils # 0.2 10^3/uL (0.0-0.8); Eosinophils % 2.7 %; Hematocrit 33.9 % (36-47); Lymphocytes # 1.6 10^3/uL (0.8-4.8); Lymphocytes % 28.5 %; Mean Corpuscular HGB Conc 33.9 g/dL (30-55); Mean Corpuscular Hemoglobin 32.1 pg (27-33); Mean Corpuscular Volume 94.7 fl (85-98); Mean Platelet Volume 10.8 fL (7.4-10.4); Monocytes # 0.4 10^3/uL (0.2-0.9); Monocytes % 7.8 %; Neutrophils % 59.9 %; Nucleated Red Blood Cells % 0 %; Platelet Count 86 10^3/cmm (157-399); Red Blood Count 3.58 10^6/uL (3.85-5.65); Red Cell Distribution Width 13.4 % (12.1-15.1); White Blood Count 5.51 10^3/uL (3.29-11.43)
[2024-04-24 04:23] LABS: Anion Gap 22.1 (5-19); Blood Urea Nitrogen 76 mg/dL (8-23); Calcium 8.5 mg/dL (8.5-10.5); Carbon Dioxide 18 mmol/L (22-29); Chloride 105 mmol/L (98-107); Glucose 157 mg/dL (65-115); Osmolality Calculated 318 mOsm/kg (285-295); Potassium 4.1 mmol/L (3.5-5.1); Sodium 141 mmol/L (136-145)
[2024-04-24] MEDS: cefTRIAXone 1,000 mg SDV 1000 MG IVP (06:05)
[2024-04-24 08:09] LABS: Glucose Point of Care 147 mg/dL (70-110)
[2024-04-24] MEDS: famotidine 20 mg/2 mL INJ IVP (08:38)
[2024-04-24] MEDS: insulin lispro 100 unit/1 mL SUBCUT ×3 (08:38→21:11)
[2024-04-24] MEDS: lactated ringers 1,000 ML 50 ML IV (11:09)
--- NOTE | 2024-04-24 11:53 | P.PN_ITS ---
Subjective 2 Subjective: Reason for follow-up: Right occipital stroke with hemorrhagic transformation History of present illness: Pranav Mayen is a 83 year old female with a history of memory loss and reported Lewy body dementia with behavior disturbance, type 2 diabetes mellitus and acute renal insufficiency who resides in a care facility. According to the patient's family the patient has been at the care facility for approximately 1 month. Prior to this the patient was reported to be living with a family member but the patient was reported to wander outside of the home and therefore the patient was placed in the care facility for the patient's safety. On 04/23/2024 around 2 AM, the patient was reported to be assisting by the nursing care staff and while ambulating the patient was reported to experience near syncope. The patient was eased to the floor without reported head trauma. Systolic blood pressure was reported to be low and the patient was brought to [facility] emergency department. In the emergency room, the ER physician stated that the patient was hypotensive. Examination was reported to be nonfocal but noncontrast head CT was obtained and reported to reveal subacute to early chronic right occipital lobe infarction with hemorrhagic transformation. The ER physician stated that he contacted another hospital facility to transfer the patient but the facility did not accept the patient in transfer since only conservative treatment was recommended by the physician the ER physician spoke to at the other facility. I was contacted around 4 AM on 04/23/2024 regarding the patient's history. In the ICU bed #4 the patient is alert. Family members were at the bedside and 1 family member was on the phone with one of the family members that were at the patient's bedside at [facility] intensive care unit bed #4. According to the family members, patient had no previous history of strokes, or heart disease. The patient underwent head MRI without contrast on 04/23/2024. IMPRESSION: 1. Very limited exam due to patient's a ltered mental status and difficulty remaining still. 2. Acute large hemorrhagic infarct invo lving the RIGHT occipital parietal region. No additional diffusion abnormalities are identified. 3. There is moderate volume loss. The e xtent of additional small vessel disease is difficult to determine. Arterial flow voids are also poorly visualized. Note: Since the patient has severe renal insufficiency MRA of the great vessels of the neck could not be obtained since patient cannot receive contrast. The patient is more alert on 04/24/2024. She is able to follow some commands. Patient has neglect on the left side of her body with findings suggestive of visual field deficit suggestive of left homonymous hemianopsia. Drug allergies: Iodinated contrast medium type reaction unknown Levaquin type reaction unknown Remeron type reaction unknown Penicillin G type reaction unknown Sulfonamide antibiotics type reaction unknown Current medications: Aricept 5 mg p.o. daily Seroquel 100 mg p.o. nightly Effexor 75 mg p.o. daily Zanaflex 2 mg p.o. daily Synthroid 75 mcg p.o. daily Lisinopril 10 mg p.o. daily Metoprolol 100 mg p.o. daily Zanaflex 2 mg p.o. daily Zofran 4 mg p.o. daily Protonic 40 mg p.o. daily Lorazepam 0.5 mg p.o. daily Hydrocodone 1 p.o. 3 times daily Melatonin 1 mg p.o. daily Albuterol sulfate 1 mg every 4 hours continuous nebulization Allopurinol 300 mg p.o. daily Aspirin 81 mg p.o. daily Dulcolax 10 mg as needed B12 500 mcg p.o. 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 gouty arthritis Acute renal failure with elevated creatinine Metabolic acidosis Type 2 diabetes mellitus Lewy body dementia with behavior disturbance Hypotension Habits: None Family history: Negative for strokes or aneurysms or seizures or dementia Social history: Patient resides in a care facility for the past month Review of Systems General: Reports: 10 or mor e systems reviewed and unremarkable except in HPI and below Eyes: Reports: change in vision Neuro: Reports: confusion and other (Right occipital stroke w ith hemorrhagic tr ansformation) Psych: Reports: memory lo ss Vitals/I&O/Wt Last Vital Signs Temp 98.9 F 04/24/24 09:00 Pulse 105 H 04/24/24 10:30 Resp 29 H 04/24/24 10:30 BP 139/80 04/24/24 10:30 Pulse Ox 93 04/24/24 10:30 O2 Del Method Room Air 04/24/24 10:30 O2 Flow Rate 2 04/23/24 10:00 04/23/24 04/24/24 04/24/24 22:59 06:59 14:59 Intake Total 250 / 1769.75 Output Total 1225 / 2500 800 / 3300 260 / 260 Balance -975 / -730.25 -800 / -1530.25 -260 / -260 Weight last 48 hrs Weight 157 lb 10.088 oz Weight 160 lb 14.999 oz Weight 160 lb 14.999 oz Weight 160 lb Physical Exam 2 Narrative: The patient is awake but appears somewhat confused. Patient answers her name correctly and follow commands. Head atraumatic. Neck supple. Cranial nerves II through XII revealed questionable left homonymous hemianopsia. Patient was able to count fingers. Other cranial nerves appear to be intact. There was no obvious facial weakness or tongue weakness. Motor testing 5/5 bilaterally. There was findings suggestive of possible neglect involving the left side of her body. Deep tendon reflex revealed plantar responses bilaterally. There was no clonus. Sensory examination was intact to touch. Throat clear. Lungs revealed no obvious wheezing. Heart regular rhythm and rate. Extremities were negative for cyanosis. Urinary Catheter Management: Roberts: Cath Placed During This Visit: no Reason for Continuing Indwelling Catheter: Accurate Measurement of Urinary Output in Critically Ill Patients Data 04/24/24 03:33 04/24/24 03:33 Micro: Microbiology 04/23/24 05:00 Urine Culture - Preliminary Urine,Clean Catch Gram Negative Rods A&P Assessment and plan (1) Ischemic cerebrovascular accident (CVA): Impression: 1. 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 Hypotension with near syncope 3. History of Lewy body dementia addressed by another physician 4. Acute renal failure with elevated creatinine 5. Allergic reaction to iodine contrast media Plan: 1. Recommend repeat noncontrast head MRI 04/26/2024 to assess for any changes in the right occipital infarction with hemorrhagic transformation 2. Awaiting carotid duplex study to assess for carotid or vertebral artery stenosis 3. Awaiting 2D echocardiogram to assess for embolic source for stroke 4. Recommend cardiac evaluation to assess for cardiac arrhythmias as well as cardiac embolic source for stroke 5. Recommend occupational therapy, physical therapy and speech therapy consults 6. Fall precautions 7. Neurochecks and vital signs per [facility] stroke protocol 8. Recommend starting lipid-lowering agent per [facility] stroke protocol if no contraindications 9. Recommend holding antiplatelet medications until further evaluation of right occipital stroke with hemorrhagic transformation has been performed on 04/26/2024 10. Keep head of bed elevated to 30 degrees as tolerated to minimize cerebral brain swelling/edema Attestations 2 Medical Necessity Statement*: The patient was evaluated by neurology for right occipital infarct with hemorrhagic transformation Coding Level of Care Code 39111 Diagnoses Ischemic cerebrovascular accident (CVA) I63.9
[2024-04-24 12:05] LABS: Glucose Point of Care 117 mg/dL (70-110)
--- NOTE | 2024-04-24 12:12 | P.PN_ITS ---
Subjective 2 Subjective: She is more awake today. However, has not been interacting much with family. Did not recognize her son. Family noticed she has been ignoring the left side of the room. Vitals/I&O/Wt Last Vital Signs Temp 98.9 F 04/24/24 09:00 Pulse 105 H 04/24/24 10:30 Resp 29 H 04/24/24 10:30 BP 139/80 04/24/24 10:30 Pulse Ox 93 04/24/24 10:30 O2 Del Method Room Air 04/24/24 10:30 O2 Flow Rate 2 04/23/24 10:00 04/23/24 04/24/24 04/24/24 22:59 06:59 14:59 Intake Total 250 / 1769.75 Output Total 1225 / 2500 800 / 3300 260 / 260 Balance -975 / -730.25 -800 / -1530.25 -260 / -260 Weight last 48 hrs Weight 71.5 kg Weight 73 kg Weight 73 kg Weight 72.575 kg Physical Exam 2 Narrative: Family at bedside. Const: GENERAL APPEARANCE: not cooperative ORIENTATION/CONSCIOUSNESS: Yes awake HENMT: COMMON NORMALS: oropharynx normal Neck/C-Spine: COMMON NORMALS: no JVD Resp: COMMON NORMALS: normal respiratory effort and clear to auscultation bilaterally AUSCULTATION: clear to auscultation bilaterally Cardio: COMMON NORMALS: no JVD, regular rhythm, S1 normal heart sound present, S2 normal heart sound present and No murmurs present (Cardio) RHYTHM: regular rhythm HEART SOUNDS: S1 normal heart sound present and S2 normal heart sound present GI: COMMON NORMALS: Normal to inspection, nondistended, normoactive bowel sounds present, Soft to palpation and non-tender PALPATION: Yes Soft to palpation Extremity: COMMON NORMALS: no joint enlargement and no pedal edema Neuro: COMMON NORMALS: moves all extremities Skin: COMMON NORMALS: no rashes or lesions noted GENERAL SKIN EXAM: no rashes or lesions noted OTHER: She is more awake today, but less interactive. Does appear to have some left- sided neglect. Urinary Catheter Management: Roberts: Cath Placed During This Visit: no Reason for Continuing Indwelling Catheter: Accurate Measurement of Urinary Output in Critically Ill Patients Data 04/24/24 03:33 04/24/24 03:33 Micro: Microbiology 04/23/24 05:00 Urine Culture - Preliminary Urine,Clean Catch Gram Negative Rods A&P Assessment and plan (1) Ischemic cerebrovascular accident (CVA): Ischemic stroke with hemorrhagic transformation. So far without significant improvement in mental status. Reviewed vitals, CBC, BMP. Platelets on review down to 86. Hemoglobin on review 11.5. With intracerebral hemorrhage, discussed with neurologist, will request for platelet transfusion. Monitor for any transfusion related reaction risk with platelet transfusion. Repeat MRI is requested for 04/26. Cancel head CT for tomorrow. Will transfer out of ICU but maintain one-to-one sitter as she does climb out of bed. Monitor for any seizure or other complications of stroke with hemorrhagic transformation. Reviewed neurology note. Elevate head of bed to 30 degrees. Gentle IV hydration, monitor for risk of fluid overload. Stop famotidine. At the moment unable to participate with PT or OT. Discussed with embedded case manager. Reevaluate. Add carotid duplex. Monitor on telemetry for any arrhythmia. Echocardiogram has been obtained. Follow-up. Treat UTI. (2) Lewy body dementia without behavioral disturbance: Chronic but pleasant not combative beyond wandering hence now in assisted living (3) Acute renal failure: Reviewed BUN, creatinine, intake and output. Kidney injury is improving. BUN down to 76, creatinine down to 4.2. Continue gentle IV hydration. Monitor for fluid overload. Appears to be dehydration. CT scan of the abdomen did not show obstruction or hydronephrosis repeat BMP after volume repletion (4) Metabolic acidosis: As above (5) Diabetes: fingerstick blood glucose before every meal and nightly with low scale sliding scale insulin (6) Urinary tract infection: Start Rocephin. Patient has reported penicillin allergy but cross-reactivity is less than 10% Plan Possible pneumonia on review of chest x-ray discussed with family. She does have some chronic cough. Continue ceftriaxone, azithromycin. Attestations 2 Medical Necessity Statement*: Continue admission for assessment management of ischemic stroke, cerebral hemorrhage, UTI, pneumonia. Diagnoses Ischemic cerebrovascular accident (CVA) I63.9 Lewy body dementia without behavioral disturbance G31.83; F02.80 Acute renal failure N17.9 Metabolic acidosis E87.20 Diabetes E11.9 Urinary tract infection N39.0
[2024-04-24] MEDS: AZITHROMYCIN ADD-Vantage 500 MG in 0.9% NaCl ADD-Vantage 250 ML 250 MG IV (12:25)
--- NOTE | 2024-04-24 12:38 | USCV_ITS ---
Pranav Mayen Age: 83 Gender: F : 1940 Exam Date: 04/24/2024 13:49 Ordering Phys: Olegario York MD Technologist: R [place]am [place] [facility] [place]: Risk Factors: Previous Vascular Surgery: Right Brachial BP: / Left Brachial BP: / Right Left Velocity (cm/s) Spectral Plaque Velocity (cm/s) Spectral Plaque Syst/Diast Broadening Syst/Diast Broadening 81.70/ 12.20 Prox CCA 67.70 / 15.60 66.60/ 9.70 Mid CCA 77.40 / 14.40 67.70/ 11.90 Distal CCA 58.10 / 13.20 27.10/ 7.30 Prox ICA 41.40 / 10.60 56.90/ 12.10 Mid ICA 41.40 / 13.50 56.00/ 14.30 Distal ICA 37.40 / 7.40 78.20 ECA 73.10 0.80 ICA/CCA 0.70 Antegrade Vertebral Antegrade 28.70/ 9.80 cm/s 69.70/ 15.80 cm/s Bi Subclavian Tri 75.80 103.7 0 CONCLUSIONS Right ICA stenosis <50%. Mild atheromatous plaque right carotid bulb/ICA. Left ICA stenosis <50%. ]Mild atheromatous plaque left carotid bulb/ICA. Intimal thickening in the common carotid arteries and internal carotid arteries bilaterally. Normal antegrade Doppler flow noted in the right vertebral artery. Normal antegrade Doppler flow noted in the left vertebral artery. Angelo Ruiz MD (Electronically Signed) Final Date: 25 April 2024 09:02 S
[2024-04-24 16:42] LABS: Glucose Point of Care 180 mg/dL (70-110)
--- NOTE | 2024-04-24 16:43 | ECG_ITS ---
[facility]: 2024-04-24 Pat Name: Pranav Mayen Department: Room: [facility] Gender: Female Qc Manager: : 1940 Requested By: Olegario York Order Number: [id number] Reading MD: Regina Sanchez M.D. Measurements Intervals [place] Rate: 121 P: 37 LA: 145 QRS: 15 QRSD: 84 T: 104 QT: 338 QTc: 480 Interpretive Statements SINUS TACHYCARDIA ST DEVIATION AND MODERATE T-WAVE ABNORMALITY, CONSIDER LATERAL ISCHEMIA [-0.1+ mV T-WAVE IN I/aVL/V5/V6] Compared to ECG 04/23/2024 09:25:11 Sinus rhythm no longer present T-wave abnormality still present Possible ischemia still present Electronically Signed On 04-26-2024 21:21:28 OXYGEN THERAPY TECHNICIAN by Regina Sanchez M.D. [id number]
[2024-04-24] MEDS: metoprolol tartrate 50 mg Tablet PO (17:53)
[2024-04-24] MEDS: quetiapine 100 mg Tablet PO (17:53)
[2024-04-24 20:35] LABS: Glucose Point of Care 194 mg/dL (70-110)
[2024-04-24 20:37] LABS: Magnesium 1.5 mg/dL (1.7-2.3)
[2024-04-24] MEDS: LORazepam 2 mg/mL INJ 1 mL 1 MG IVP (21:11)
[2024-04-25] VITALS (19 sets, daily range): BP systolic 76–117; BP diastolic 48–83; PULSE 76–114; RESP 14–22; TEMP 36.4–37.2; O2SAT 92–99
[2024-04-25] MEDS: lactated ringers 1,000 ML 50 ML IV (05:24)
[2024-04-25] MEDS: cefTRIAXone 1,000 mg SDV 1000 MG IVP (05:24)
[2024-04-25 05:47] LABS: Basophils % 0.6 %; Eosinophils # 0.1 10^3/uL (0.0-0.8); Eosinophils % 2.8 %; Hematocrit 32.1 % (36-47); Lymphocytes # 1.8 10^3/uL (0.8-4.8); Lymphocytes % 35.6 %; Mean Corpuscular HGB Conc 34.6 g/dL (30-55); Mean Corpuscular Hemoglobin 32.6 pg (27-33); Mean Corpuscular Volume 94.1 fl (85-98); Mean Platelet Volume 9.9 fL (7.4-10.4); Monocytes # 0.4 10^3/uL (0.2-0.9); Neutrophils # 2.61 10^3/uL (1.8-7.7); Neutrophils % 52.6 %; Nucleated Red Blood Cells % 0 %; Platelet Count 85 10^3/cmm (157-399); Red Blood Count 3.41 10^6/uL (3.85-5.65); Red Cell Distribution Width 13.5 % (12.1-15.1); White Blood Count 4.97 10^3/uL (3.29-11.43)
[2024-04-25 06:03] LABS: Blood Urea Nitrogen 45 mg/dL (8-23); Calcium 8.9 mg/dL (8.5-10.5); Carbon Dioxide 22 mmol/L (22-29); Chloride 108 mmol/L (98-107); Creatinine Clr Calc Pharmacy 14.9328; Glucose 124 mg/dL (65-115); Osmolality Calculated 307 mOsm/kg (285-295); Sodium 142 mmol/L (136-145)
[2024-04-25 06:05] LABS: Anion Gap 15.6 (5-19); Potassium 3.6 mmol/L (3.5-5.1)
[2024-04-25 06:23] LABS: Glucose Point of Care 127 mg/dL (70-110)
--- NOTE | 2024-04-25 08:52 | PC.SOCIAL ---
IMM Updated Updated pt on IMM. No questions voiced. Provided pt a copy. Initialed, dated, & timed a copy & placed in chart.
[2024-04-25] MEDS: LORazepam 0.5 mg Tablet PO (09:12)
[2024-04-25] MEDS: pantoprazole 40 mg SDV IVP (09:12)
[2024-04-25] MEDS: levothyroxine 75 mcg Tablet PO (09:12)
[2024-04-25] MEDS: metoprolol tartrate 50 mg Tablet PO (09:12)
[2024-04-25] MEDS: tizanidine 4 mg Tablet 2 MG PO (09:12)
[2024-04-25] MEDS: magnesium sulfate premix 2 GM/50 ML PIGGYBACK IV (09:21)
[2024-04-25 10:47] LABS: Glucose Point of Care 174 mg/dL (70-110)
--- NOTE | 2024-04-25 11:26 | PC.NURSE ---
Pt's BP 76/50. Pulse 95. Dr French advised. New orders placed for 250ml bolus
[2024-04-25] MEDS: sodium chloride 0.9% 250 ML IV ×3 (11:31→14:01)
--- NOTE | 2024-04-25 13:01 | PC.NURSE ---
Report called to Gretchen in ICU. Pt BP remains 76/48 after first bolus. Second bolus started before transport to ICU. Family at bedside and advised of transfer to ICU.
[2024-04-25] MEDS: norepinephrine 4 MG/250 ML BAG 7.5 MG IV (13:50)
--- NOTE | 2024-04-25 14:32 | CTR_ITS ---
PROCEDURE INFORMATION: Exam: CT Head Without Contrast Exam date and time: 04/25/2024 3:24 PM Age: 83 years old Clinical indication: Other: Reassess stroke, bleed TECHNIQUE: Imaging protocol: Computed tomography of the head without contrast. Radiation optimization: All CT scans at this facility use at least one of these dose optimization techniques: automated exposure control; mA and/or kV adjustment per patient size (includes targeted exams where dose is matched to clinical indication); or iterative reconstruction. COMPARISON: 1. MR head wo con* [id number] 04/23/2024 10:[address] head wo con* [id number] 04/23/2024 4:00 AM RADIATION DOSE METRICS: Total DLP (mGy-cm): 1066.98 FINDINGS: Brain: Previously noted region of right parieto-occipital infarction appears essentially unchanged, except for minimal decrease in density the associated hemorrhagic component. No new hemorrhage is seen. There are global involutional changes of the brain which are in keeping with the patient's age. Periventricular hypodensities are nonspecific but most likely reflect chronic microvascular ischemic disease. The there is no intracranial mass effect or midline shift. Cerebral ventricles: The ventricles are normal in size and configuration. Paranasal sinuses: Visualized sinuses are unremarkable. No fluid levels. Mastoid air cells: Small left mastoid effusion. Bones: Unremarkable. No acute fracture. Soft tissues: Unremarkable. Vasculature: Atherosclerotic vascular disease is noted at the level of the skull base. CT/CT head wo con* [id number] IMPRESSION: Previously noted right parietooccipital infarction with hemorrhagic conversion. Slight interval decrease in density of blood products since head CT dated 04/23/2024.
[2024-04-25 17:06] LABS: Glucose Point of Care 140 mg/dL (70-110)
--- NOTE | 2024-04-25 18:45 | PC.NURSE ---
Assumed care of patient from NISSA Jiménez. Family and NISSA Jiménez spoke with Dr. York about making patient comfort care. Dr. York states to NISSA Jiménez that he will put in the comfort care orders.
[2024-04-25] MEDS: morphine 4 mg/mL SDV 1 mL IVP (19:17)
[2024-04-25] MEDS: lanolin oint 7 gm 1 APPLIC TOPICAL (19:24)
--- NOTE | 2024-04-25 19:33 | PM.PN ---
Subjective Subjective: She seems to wake up briefly to voice, unintelligible answer during my visit. Falls back asleep. As per discussion with family has been mentioning names of people from her childhood, seeing people under stairs who are not there. Vitals/I&O/Wt Last Vital Signs Temp 97.5 F L 04/25/24 11:33 Pulse 109 H 04/25/24 18:00 Resp 16 04/25/24 19:17 BP 112/69 04/25/24 18:00 Pulse Ox 96 04/25/24 18:00 O2 Del Method Room Air 04/25/24 13:37 O2 Flow Rate 2 04/23/24 10:00 04/25/24 04/25/24 04/25/24 06:59 14:59 22:59 Intake Total 912.5 / 1749.5 670 / 670 250 / 920 Output Total 750 / 1760 500 / 500 Balance 162.5 / -10.5 670 / 670 -250 / 420 Weight last 48 hrs Weight 71.668 kg Weight 71.5 kg Physical Exam Narrative: Family at bedside on visit on [facility] and revisit in ICU. Const: COMMON NORMALS: patient oriented x3 and alert GENERAL APPEARANCE: not cooperative ORIENTATION/CONSCIOUSNESS: Yes awake HENMT: COMMON NORMALS: oropharynx normal Neck/C-Spine: COMMON NORMALS: no JVD Resp: COMMON NORMALS: normal respiratory effort and clear to auscultation bilaterally AUSCULTATION: clear to auscultation bilaterally Cardio: COMMON NORMALS: no JVD, regular rhythm, S1 normal heart sound present, S2 normal heart sound present and No murmurs present (Cardio) RHYTHM: regular rhythm HEART SOUNDS: S1 normal heart sound present and S2 normal heart sound present GI: COMMON NORMALS: Normal to inspection, nondistended, normoactive bowel sounds present, Soft to palpation and non-tender PALPATION: Yes Soft to palpation Extremity: COMMON NORMALS: no joint enlargement and no pedal edema Neuro: COMMON NORMALS: patient oriented x3 and moves all extremities SENSORIUM/ORIENTATION: Yes alert Skin: COMMON NORMALS: no rashes or lesions noted GENERAL SKIN EXAM: no rashes or lesions noted OTHER: She is more awake today, but less interactive. Left-sided neglect. Urinary Catheter Management: Roberts: Cath Placed During This Visit: no Reason for Continuing Indwelling Catheter: Accurate Measurement of Urinary Output in Critically Ill Patients Data 04/25/24 05:35 04/25/24 05:35 Micro: Microbiology 04/23/24 05:00 Urine Culture - Final Urine,Clean Catch Klebsiella pneumoniae A&P Assessment and plan (1) Ischemic cerebrovascular accident (CVA): Mental status has not significantly improved. Lethargic, briefly wakes up, seems to states she is not in pain, but overall answer unintelligible. Later on from history obtained from family seems to be having left-sided neglect. Speaking about people from her childhood and seeing people who are not in the room. Appears to be having delirium, combination encephalopathy following CVA, possibly ICU delirium, discussed also possible complicating factor being her medications with history noted withdrawal from some medication possibly metoprolol, did respond well with restarting cautiously on lower dose, was also resumed on tizanidine, lorazepam in case of possible withdrawal. Tachycardia had improved, however, today blood pressure became low. Renal function noted improving, possibly with some increased urine output, given saline bolus, without response, additional bolus and moved to intensive care unit. They are given additional bolus and started on pressor. Requested NICOM assessment. Additionally with concern for fixed pupils on exam requested CT head, discussed with neurologist. She does seem to show some response to fluid resuscitation hemodynamically, only on 2 mics of Levophed. NICOM results pending. Discussed CT results with family, noted ischemic CVA with hemorrhagic transformation without any worsening, with slight interval decrease in density of blood products since prior head CT. She has been exhibiting significant left-sided neglect. Discussed overall condition, underlying dementia, advanced age, unfortunately likely very difficult recovery even if everything aligns with short-term recovery from stroke with hemorrhagic transformation, which family understand. Still under question whether she may be able to resume oral intake, whether she may add all participate with physical therapy, although they do state her dementia has been progressing recently. Discussed consideration of alternative of switch to comfort measures. Family understand overall significant hurdles and odds stacked against her for meaningful recovery or quality of life with unfortunately likely even further worsening of dementia. They elect to continue care and give things further consideration. They do feel she may have been ready for end-of-life in case things were worsening. Later on in the evening family have further discussed among themselves and given her overall poor quality of life, progressive dementia, and now life-changing event with difficult recovery they have decided to switch efforts to comfort measures alone. Changed CODE STATUS to comfort measures only. Discontinued medications, further lab work, assessments, switch to comfort care including with IV Ativan and morphine for any anxiety or pain. Earlier today additional platelets were ordered with noted platelets 85,000. Canceled with change in goals of care. Ischemic stroke with hemorrhagic transformation. So far without significant improvement in mental status. Discussed with nursing. Earlier discussed with case loader operator. Reviewed carotid duplex. Monitor on telemetry for any arrhythmia. Echocardiogram has been obtained. Follow-up. Treat UTI. (2) Lewy body dementia without behavioral disturbance: Chronic but pleasant not combative beyond wandering hence now in assisted living (3) Acute renal failure: Reviewed BUN, creatinine, intake and output. Kidney injury is improving. BUN down to 76, creatinine down to 4.2. Continue gentle IV hydration. Monitor for fluid overload. Appears to be dehydration. CT scan of the abdomen did not show obstruction or hydronephrosis repeat BMP after volume repletion (4) Metabolic acidosis: As above (5) Diabetes: fingerstick blood glucose before every meal and nightly with low scale sliding scale insulin (6) Urinary tract infection: Rocephin. Patient has reported penicillin allergy but cross-reactivity is less than 10% Plan Possible pneumonia on review of chest x-ray discussed with family. She does have some chronic cough. Continue ceftriaxone, azithromycin. Attestations Medical Necessity Statement*: Continue hospitalization for management following ischemic CVA with hemorrhagic transformation, adjustment of care congruent with goals of care with transition to comfort care alone. Coding Level of Care Code Critical Care >/= 30 minutes Critical care time (in minutes): 40 The high probability of a clinically significant, sudden or life threatening deterioration, as referenced in this documentation, required my full and direct attention, intervention and personal management. The critical care time shown is in addition to time spent performing any reported separately billable procedures and includes the following: [x] Data and vital sign review and interpretation [x] Patient assessment, examination and intervention [x] Medication orders and management [x] Patient/Family updates as able [x] Care Coordination and Documentation. Diagnoses Ischemic cerebrovascular accident (CVA) I63.9 Lewy body dementia without behavioral disturbance G31.83; F02.80 Acute renal failure N17.9 Metabolic acidosis E87.20 Diabetes E11.9 Urinary tract infection N39.0
[2024-04-26] MEDS: atropine 1% op soln 2 mL Btl 3 DROP SUBLINGUAL (02:08)
[2024-04-26] MEDS: LORazepam 2 mg/mL INJ 1 mL IVP ×2 (02:54→14:42)
[2024-04-26 04:49] VITALS: BP 115/65; PULSE 95; RESP 15; TEMP 36.7; O2SAT 97
[2024-04-26 05:47] VITALS: BMI 29.0
[2024-04-26 07:15] VITALS: BP 121/71; PULSE 78; RESP 16; TEMP 36.8; O2SAT 98
[2024-04-26 07:55] VITALS: O2SAT 98
[2024-04-26] MEDS: morphine 10 mg/0.5 mL oral liq UD SUBLINGUAL (12:36)
--- NOTE | 2024-04-26 13:09 | PM.DCS ---
Discharge Providers Date of Admission: 04/23/24 05:23 Date of Discharge: April 26, 2024 Attending Provider at Admission: Angelo Casillas MD Attending Provider at Discharge: Olegario York Primary Care Provider: Catarino Marrero DO Diagnoses at Discharge Discharge Diagnosis (1) Ischemic cerebrovascular accident (CVA): Status: Acute (2) Lewy body dementia without behavioral disturbance: Status: Acute (3) Acute renal failure: Status: Acute (4) Metabolic acidosis: Status: Acute (5) Diabetes: Status: Acute (6) Urinary tract infection: Status: Acute Reason for Visit Reason for Visit: neck pain Hospital Course Hospital Course 83-year-old lady with history of diabetes, Lewy body dementia was admitted for assessment management with finding of acute CVA, with finding of right occipital CVA with hemorrhagic transformation on CT, as well as acute renal failure with BUN 104, creatinine 6.6, with dehydration. Recently with worsening dementia, earlier this year was placed in a memory unit at [place] however the last 2 weeks she had had been less attentive, having more difficulty distracting, sometimes staring. On 04/19 she had a headache, ear pain, nausea and vomiting. She had watery diarrhea last week. On initial assessment she was not found to be a candidate for thrombolysis. Antiplatelets held due to hemorrhagic transformation. Any medications that may be contributing to acute renal failure were held. She was started on IV hydration. Received Rocephin for urinary tract infection, urine culture eventually grew out Klebsiella. Confirmatory imaging with head MRI showed reported acute large hemorrhagic infarct involving right occipital parietal region, moderate volume loss. As per discussion with neurology, family, transfer was discussed with neurologist over [facility] who also reviewed images, without finding of need for acute intervention recommended against transfer. Care continued here. She was found to have tachycardia, rising hypertension with symptoms of withdrawal from metoprolol possibly another medication. Metoprolol is resumed at lower dose, tizanidine, quetiapine, lorazepam resumed. Venlafaxine was held to avoid contributing to risk of bleeding, donepezil was held to avoid hypotension. Renal function was showing improvement with decreasing BUN, creatinine, has been producing urine. On 04/25 noted hypotensive requiring fluid boluses suspected likely due to picking up urine output, reduced oral intake. Mental status has been slow to improve, she has been sleeping long parts of the day, initially waking up briefly giving unintelligible responses. CT of the head was repeated yesterday which showed stable stroke findings with hemorrhagic transformation, slight interval decrease in density of blood products since prior CT. As per discussion with family with overall long-term prognosis unfavorable with underlying recently progressive dementia, advanced age, with complicated stroke, left side neglect, prolonged recovery with delirium, on further consideration overall long-term goals of care are limited, preferring focus on comfort. She so far has not been a candidate for rehabilitation. Finding that further aggressive medical assessment and interventions would be beyond her goals of care, she was transition to comfort measures with transfer to medical surgical floor yesterday. Today she is a little bit more intermittently awake, little bit more interactive. Still with left-sided neglect. Arrangements are made for her to be able to return for long-term care at the [facility]. As per discussion with neurology this is appropriate, we may resume low-dose aspirin at current time. Her medications are pared down to help decrease polypharmacy, help reduce further risk of hypotension, kidney injury. Family are researching more about hospice, would be interested to finding out more with consideration of different [place]. In case of further significant improvement of cognitive faculties, ability to participate and follow directions with PT they may give consideration to trying skilled rehabilitation. Physical Exam Narrative: Family at bedside on second visit on [facility] Const: OTHER: Intermittently wakes up. HENMT: COMMON NORMALS: oropharynx normal Neck/C-Spine: COMMON NORMALS: no JVD Resp: COMMON NORMALS: normal respiratory effort and clear to auscultation bilaterally AUSCULTATION: clear to auscultation bilaterally Cardio: COMMON NORMALS: no JVD, regular rhythm, S1 normal heart sound present, S2 normal heart sound present and No murmurs present (Cardio) RHYTHM: regular rhythm HEART SOUNDS: S1 normal heart sound present and S2 normal heart sound present GI: COMMON NORMALS: Normal to inspection, nondistended, normoactive bowel sounds present, Soft to palpation and non-tender PALPATION: Yes Soft to palpation Extremity: COMMON NORMALS: no joint enlargement and no pedal edema Neuro: COMMON NORMALS: moves all extremities Skin: COMMON NORMALS: no rashes or lesions noted GENERAL SKIN EXAM: no rashes or lesions noted OTHER: She is more awake in the afternoon. Left-sided neglect. Urinary Catheter Management: Roberts: Cath Placed During This Visit: no Reason for Continuing Indwelling Catheter: Hospice/Comfort/Palliative Care Discharge Data Studies Completed and Pending Completed Studies During Hospitalization Category Date Time Status CT abdomen pelvis wo con [id number] Stat Cat Scan 04/23/24 02:[address] head wo con* [id number] Routine Cat Scan 04/25/24 14:[address] head wo con* [id number] Stat Cat Scan 04/23/24 02:44 Completed XR chest 1V portable [id number] Stat Exams 04/23/24 02:44 Completed MR head wo con* [id number] Routine MRI 04/23/24 08:57 Completed CV carotid duplex BI* [id number] Routine Ultrasound 04/24/24 12:38 Completed Pending at discharge Category Date Time Status CV. echo complete* [id number] Routine Ultrasound 04/23/24 05:57 Taken Radiology Impressions Abdomen/Pelvis CT 04/23/24 02:44 IMPRESSION: Small hiatal hernia. Borderline cardiomegaly. Left ovarian dermoid or calcified cyst. Left renal cyst. Other surgical changes as described above. Correlate with the patient's clinical history. COMMENTS: Consistent with the [employer]'s Incidental Findings Committee white paper (J Am Hannah Radiol 2018): Any incidental renal lesion less than 1 cm or classified as too small to characterize, or any incidental cystic renal lesion characterized as simple-appearing, is likely benign. No follow-up imaging is recommended for these lesions per consensus recommendations based on imaging criteria. Chest X-Ray 04/23/24 02:44 IMPRESSION: Possible left lung base pneumonia. Head MRI 04/23/24 08:57 IMPRESSION: 1. Very limited exam due to patient's altered mental status and difficulty remaining still. 2. Acute large hemorrhagic infarct involving the RIGHT occipital parietal region. No additional diffusion abnormalities are identified. 3. There is moderate volume loss. The extent of additional small vessel disease is difficult to determine. Arterial flow voids are also poorly visualized. Head CT 04/25/24 14:32 IMPRESSION: Previously noted right parietooccipital infarction with hemorrhagic conversion. Slight interval decrease in density of blood products since head CT dated 04/23/2024. Laboratory Results WBC 4.97 10^3/uL (3.29-11.43) 04/25/24 05:35 RBC 3.41 10^6/uL (3.85-5.65) L 04/25/24 05:35 Hgb 11.10 g/dL (11.27-16.99) L 04/25/24 05:35 Hct 32.1 % (36-47) L 04/25/24 05:35 MCV 94.1 fl (85-98) 04/25/24 05:35 MCH 32.6 pg (27-33) 04/25/24 05:35 MCHC 34.6 g/dL (30-55) 04/25/24 05:35 RDW 13.5 % (12.1-15.1) 04/25/24 05:35 Plt Count 85 10^3/cmm (157-399) L 04/25/24 05:35 MPV 9.9 fL (7.4-10.4) 04/25/24 05:35 Neut % (Auto) 52.6 % 04/25/24 05:35 Lymph % (Auto) 35.6 % 04/25/24 05:35 [place] % (Auto) 8.0 % 04/25/24 05:35 Eos % (Auto) 2.8 % 04/25/24 05:35 Baso % (Auto) 0.6 % 04/25/24 05:35 Neut # (Auto) 2.61 10^3/uL (1.8-7.7) 04/25/24 05:35 Lymph # (Auto) 1.8 10^3/uL (0.8-4.8) 04/25/24 05:35 [place] # (Auto) 0.4 10^3/uL (0.2-0.9) 04/25/24 05:35 Eos # (Auto) 0.1 10^3/uL (0.0-0.8) 04/25/24 05:35 Baso # (Auto) 0.0 10^3/uL (0.0-0.1) 04/25/24 05:35 Nucleated RBC % (auto) 0 % 04/25/24 05:35 Nucleated RBCs # 0.0 /100WBC 04/25/24 05:35 PT 14.40 SECONDS (12.1-14.9) 04/23/24 02:06 INR 1.08 (0.8-1.2) 04/23/24 02:06 APTT 28.3 SECONDS (23.9-36.7) 04/23/24 02:06 Specimen Type Arterial 04/23/24 03:10 Sample Site Radial, left 04/23/24 03:10 ABG pH 7.34 (7.35-7.45) L 04/23/24 03:10 ABG pCO2 26.1 mmHg (35-45) L 04/23/24 03:10 ABG pO2 92.9 mmHg (80.0-100.0) 04/23/24 03:10 ABG HCO3 14.1 mmol/L (22-26) L 04/23/24 03:10 ABG Base Excess -10.3 mmol/L (-2.0-2.0) L 04/23/24 03:10 Que Test Pos 04/23/24 03:10 Hematocrit 32.9 % (37-47) L 04/23/24 03:10 Hgb O2 Saturation 96.1 % (95-100) 04/23/24 03:10 Carboxyhemoglobin 1.0 %THgb (0.4-20.1) 04/23/24 03:10 Methemoglobin 0.3 % (0.4-1.5) L 04/23/24 03:10 Total Hemoglobin 10.7 g/dL (12-16) L 04/23/24 03:10 O2 Delivery Device Room air 04/23/24 03:10 Transverse Abdominal Muscle Surgeon ID [email or web address] 04/23/24 03:10 Sodium 142 mmol/L (136-145) 04/25/24 05:35 Potassium 3.6 mmol/L (3.5-5.1) 04/25/24 05:35 Chloride 108 mmol/L (98-107) H 04/25/24 05:35 Carbon Dioxide 22 mmol/L (22-29) 04/25/24 05:35 Anion Gap 15.6 (5-19) 04/25/24 05:35 BUN 45 mg/dL (8-23) H 04/25/24 05:35 Creatinine 2.6 mg/dL (0.5-0.9) H 04/25/24 05:35 GFR Calculation Not Reportable 04/25/24 05:35 Glucose 124 mg/dL (65-115) H 04/25/24 05:35 POC Glucose 140 mg/dL (70-110) H 04/25/24 17:04 Estimat Average Glucose 177 04/23/24 02:06 Hemoglobin A1c 7.8 % (4.0-6.0) H 04/23/24 02:06 Calculated Osmolality 307 mOsm/kg (285-295) H 04/25/24 05:35 Lactic Acid 1.3 mmol/L (0.5-2.2) 04/23/24 03:20 Calcium 8.9 mg/dL (8.5-10.5) 04/25/24 05:35 Phosphorus 5.4 mg/dL (2.5-4.5) H 04/23/24 04:15 Magnesium 1.5 mg/dL (1.7-2.3) L 04/24/24 20:12 Total Bilirubin 0.5 mg/dL (0.15-1.2) 04/23/24 02:06 AST 33 U/L (0-32) H 04/23/24 02:06 ALT 26 U/L (0-33) 04/23/24 02:06 Alkaline Phosphatase 110 U/L (35-105) H 04/23/24 02:06 Creatine Kinase 137 U/L (26-192) 04/23/24 02:06 Troponin T Baseline 59 ng/L (0-10) H 04/23/24 02:06 Troponin T 120 Minute 44.88 ng/L (0-10) H 04/23/24 04:15 Delta Troponin T -14.12 ABS# (0-10) L 04/23/24 04:15 Troponin T Hi Sens 6Hr 45.42 ng/L (0-10) H 04/23/24 08:38 Troponin T Hi Sens 6Hr Delta -13.58 ng/L (0-12) L 04/23/24 08:38 C-Reactive Protein 4.2 mg/L (0.0-4.9) 04/23/24 02:06 NT-Pro-B Natriuret Pep 459 pg/mL (0-450) H 04/23/24 02:06 Total Protein 6.3 g/dL (6.6-8.7) L 04/23/24 02:06 Albumin 3.8 g/dL (3.5-5.2) 04/23/24 02:06 Globulin 2.5 g/dL (1.3-4.6) 04/23/24 02:06 Triglycerides 227 mg/dL (0-150) H 04/23/24 04:15 Cholesterol 143 mg/dL (0-200) 04/23/24 04:15 LDL Cholesterol, Calc 76 mg/dL (50-129) 04/23/24 04:15 HDL Cholesterol 22 mg/dL (60-100) L 04/23/24 04:15 LDL/HDL Ratio 3.45 RATIO (0.00-3.22) H 04/23/24 04:15 Cholesterol/HDL Ratio 6.50 mg/dL (0.0-4.40) H 04/23/24 04:15 TSH 3.18 uIU/mL (0.27-4.20) 04/23/24 04:15 Random Cortisol 32.27 ug/dL (2.47-19.5) H 04/23/24 04:15 Urine Color Yellow (Yellow) 04/23/24 05:00 Urine Appearance Cloudy (CLEAR) A 04/23/24 05:00 Urine pH 5.5 (5-7) 04/23/24 05:00 Ur Specific [place] 1.012 (1.005-1.030) 04/23/24 05:00 Urine Protein Trace (Negative) A 04/23/24 05:00 Urine Glucose (UA) 2+ (Normal) H 04/23/24 05:00 Urine Ketones Negative (Negative) 04/23/24 05:00 Urine Blood Non-haemolysed trace (Negative) 04/23/24 05:00 Urine Nitrate Negative (Negative) 04/23/24 05:00 Urine Bilirubin Negative (Negative) 04/23/24 05:00 Urine Urobilinogen 0.2 mg/dL (Negative) 04/23/24 05:00 Ur Leukocyte Esterase 1+ (Negative) A 04/23/24 05:00 Urine RBC 0-2 /hpf (0-2) 04/23/24 05:00 Urine WBC 21-50 /hpf (0-5) H 04/23/24 05:00 Ur Squamous Epith Cells 0-5 /hpf (0-5) 04/23/24 05:00 Amorphous Sediment Not Reportable 04/23/24 05:00 Urine Bacteria 4+ /hpf (NONE) H 04/23/24 05:00 Hyaline Casts 6.61 /lpf 04/23/24 05:00 Blood Type O Negative 04/24/24 12:57 Rho(D) Type Rh negative 04/24/24 12:57 Vitals Last Vital Signs Temp 98.2 F 04/26/24 07:15 Pulse 78 04/26/24 07:15 Resp 16 04/26/24 07:15 BP 121/71 04/26/24 07:15 Pulse Ox 98 04/26/24 07:55 O2 Del Method Room Air 04/26/24 07:55 O2 Flow Rate 2 04/23/24 10:00 Discharge Plan Discharge Patient Disposition: Xfer [facility] Condition: Stable Prescriptions: New Tears Lubricant Eye Drop 0.5 % Drops 2 drp eye-both Q2H PRN (Reason: Dry Eye(S)) Qty: 15 0RF atropine 1 % Drops 3 drp sublingual Q4H PRN (Reason: Excessive Secretions, Rattling) Qty: 5 0RF morphine concentrate 10 mg/0.5 mL Syringe 2 - 10 mg sublingual Q2H PRN (Reason: Moderate To Severe Pain or SOB) Qty: 50 0RF Lanolin (HPA) 100 % Cream 1 applic topical PRN PRN (Reason: Dryness) Qty: 7 0RF Alprazolam Intensol 1 mg/mL concentrate 1 mg PO TID PRN (Reason: anxiety) Qty: 30 0RF cefdinir 300 mg capsule 300 mg PO BID 2 Days Qty: 4 0RF quetiapine 25 mg tablet 25 mg PO BEDTIME Qty: 90 0RF Continued donepezil 5 mg tablet 5 mg PO DAILY aspirin 81 mg Tablet,Delayed Release (Dr/Ec) 81 mg PO DAILY levothyroxine 75 mcg tablet 75 mcg PO DAILY magnesium hydroxide [Milk of Magnesia] 400 mg/5 mL Suspension 15 ml PO DAILY PRN (Reason: Constipation) cyanocobalamin (vitamin B-12) [Vitamin B-12] 500 mcg Tablet 500 mcg PO DAILY bisacodyl [Dulcolax (bisacodyl)] 10 mg Suppository 10 mg SD DAILY pantoprazole 40 mg tablet,delayed release (DR/EC) 40 mg PO DAILY allopurinol 300 mg tablet 300 mg PO DAILY senna 8.6 mg Capsule 8.6 mg PO DAILY Changed albuterol sulfate 0.63 mg/3 mL solution for nebulization 1 mg continuous nebulization Q4H PRN (Reason: Wheezing) Qty: 75 0RF tizanidine 2 mg tablet 2 mg PO DAILY PRN (Reason: Muscle Spasm) Qty: 1 0RF Rx Instructions: Not new, only change to PRN ondansetron HCl 4 mg tablet 4 mg PO DAILY PRN (Reason: Nausea) Qty: 1 0RF Rx Instructions: Not new, only change to PRN melatonin 1 mg Tablet 1 mg PO DAILY PRN (Reason: Insomnia) Qty: 1 0RF Rx Instructions: Not new, only change to PRN Discontinued venlafaxine 75 mg tablet 75 mg PO DAILY metoprolol tartrate 100 mg tablet 100 mg PO DAILY hydrocodone-acetaminophen 5-325 mg tablet 1 tab PO TID quetiapine 100 mg tablet 100 mg PO QPM lorazepam 0.5 mg tablet 0.5 mg PO DAILY lisinopril 10 mg tablet 10 mg PO DAILY triamterene-hydrochlorothiazid 37.5-25 mg tablet 1 tab PO DAILY Discharge Orders: Discharge Order (Routine); Ordered 04/26/24 Ordered By: Olegario York Referrals: [facility] [Outside] Catarino Marrero DO [Primary Care Provider] - 4-7 days Discharge Diet: As Directed, Cardiac and Diabetic Discharge Activity: Increase activity as tolerated and Limit activity as instructed Activity Restrictions/Additional Instructions: Continue dysphagia level 4 diet, extremity thick/pur?ed, thin liquids. Maintain aspiration precautions. It is okay to sit up or stand up to voice with assistance. Maintain fall precautions. She is at fall risk or risk of injury due to left-sided neglect and vision loss. Continue discussion and initiation of hospice care. Unless with further improvement she becomes a candidate for any physical therapy and if family decide to try physical therapy if she did become able to participate. Continue low-dose aspirin 81 mg. Maintain fall precautions. Revisit diabetes with primary provider, in case her condition allows and kidneys show further improvement consider addition of metformin. Complete brief course of antibiotic for urinary tract infection. Klebsiella grew in urine (resistant to Unasyn, intermediate sensitivity to Augmentin, resistant to tetracycline). Venlafaxine has not been continued and has not resumed at discharge due to potentially increasing risk of bleeding. Consider alternatives to 2 serotonergic antidepressants if antidepressant is needed. Discharge Attestations Time Spent in Discharge Care*: greater than 30 min Quality Metrics Clinical Quality Measures [ Cerebrovascular Accident { Contraindication to Antithrombotic: None; antithrombotic prescribed; Contraindication to Anticoagulation: Overlap treatment not indicated; Contraindication to Statin: Further opinion sought;}] Coding Level of Care Code 60277 Total time (in minutes) for Discharge: 50 Diagnoses Ischemic cerebrovascular accident (CVA) I63.9 Lewy body dementia without behavioral disturbance G31.83; F02.80 Acute renal failure N17.9 Metabolic acidosis E87.20 Diabetes E11.9 Urinary tract infection N39.0
[2024-04-26 14:47] VITALS: RESP 18
[2024-04-26] MEDS: morphine 4 mg/mL SDV 1 mL IVP (14:47)
[2024-04-26 15:08] VITALS: BP 121/71; PULSE 78; RESP 16; TEMP 36.8; O2SAT 98
--- NOTE | 2024-04-26 15:18 | PC.NURSE ---
student services director performed hand hygiene upon entering the room. The male family member was asked to leave the room for the procedure of galvan removal. He shut the door upon exiting the room. Procedure explained to the family members and ballon deflated. 9cc of NS removed. Galvan was pulled without incident. Hand hygiene was performed after removal.
== END 2024-04-26 15:23 | disposition skilled nursing facility (03) | DRG 64 ==
LOC: ER 04:44 → ICU 05:24 → MEDSURG 04-24 19:29 → ICU 04-25 13:34 → MEDSURG 04-25 20:46
PROVIDERS: Admitting Provider Internal Medicine; Emergency Provider Emergency Medicine; PCP Internal Medicine; Visit Provider Internal Medicine
DX: I63.531 Cerebral infarction due to unspecified occlusion or stenosis of right posterior cerebral artery (principal); I61.1 Nontraumatic intracerebral hemorrhage in hemisphere, cortical; N17.9 Acute kidney failure, unspecified; E87.20 Acidosis, unspecified; N39.0 Urinary tract infection, site not specified; R41.4 Neurologic neglect syndrome; F02.818 Dementia in other diseases classified elsewhere, unspecified severity, with other behavioral disturbance; G31.83 Neurocognitive disorder with Lewy bodies; Z91.83 Wandering in diseases classified elsewhere; I95.9 Hypotension, unspecified; R55 Syncope and collapse; E86.0 Dehydration; E11.9 Type 2 diabetes mellitus without complications; Z89.421 Acquired absence of other right toe(s); M10.9 Gout, unspecified; Z79.890 Hormone replacement therapy; Z79.82 Long term (current) use of aspirin; R29.703 NIHSS score 3; R05.3 Chronic cough; Z51.5 Encounter for palliative care; Z66 Do not resuscitate; B96.1 Klebsiella pneumoniae [K. pneumoniae] as the cause of diseases classified elsewhere; I10 Essential (primary) hypertension
CPT/HCPCS: 36415; 36416; 36430; 36600; 51702; 70450; 70551; 71045; 74176; 80048; 80053; 80061; 81001; 82533; 82550; 82805; 82962; 83036; 83605; 83735; 83880; 84100; 84443; 84484; 85025; 85610; 85730; 86140; 86900; 87077; 87086; 87186; 92523; 92610; 93005; 93306; 93880; 96365; 96367; 96372; 96374; 96376; 99285; J0456; J0696; J1815; J2060; J2270; J2470; J2543; J3475; J3486; J3490; J7030; J7050; J7120; P9035